=== PATIENT | female | born 1960 | race Caucasian/White ===

== ENCOUNTER 2020-01-09 00:17 | Emergency (ER) | payer OTHER ==
--- NOTE | 2020-01-09 01:44 | EDM.PDOC ---
ED HPI GENERAL MEDICAL PROBLEM - General Chief Complaint: Lower Extremity Injury/Pain Stated Complaint: RT KNEE SWOLLEN Time Seen by Provider: 01/09/20 00:52 Source of Information: Reports: Patient History Limitations: Reports: No Limitations - History of Present Illness INITIAL COMMENTS - FREE TEXT/NARRATIVE: History of present illness: [Patient is 59-year-old female with a history of right hip replacement done about 4 days ago at another facility. She presents with swelling of the right lower extremity. She is taking Xarelto as a precautionary measure since having the right hip surgery. She has a history of previous pulmonary embolism for which she was on Xarelto for 6 months but then was able to stop it. She denies any chest pain or shortness of breath. She denies any severe worsening pain or warmth over the incision site. No purulent drainage. Denies fever.] Review of systems: As per history of present illness and below otherwise all systems reviewed and negative. Past medical history: As per history of present illness and as reviewed below otherwise noncontributory. Surgical history: As per history of present illness and as reviewed below otherwise noncontributory. Social history: No reported history of drug or alcohol abuse. Family history: As per history of present illness and as reviewed below otherwise noncontributory. Physical exam: General: Awake, alert, no acute distress, A&O X3. HEENT: Atraumatic, normocephalic, pupils reactive, negative for conjunctival pallor or scleral icterus, mucous membranes moist, throat clear, neck supple, nontender, trachea midline. Lungs: Clear to auscultation, breath sounds equal bilaterally, chest nontender. Heart: RRR, normal S1S2, no JVD. Abdomen: Soft, nondistended, nontender. Negative for masses or hepatosplenomegaly. Negative for costovertebral tenderness. Pelvis: Stable nontender. Genitourinary: Deferred. Rectal: Deferred. Extremities: Surgical site of the right lateral hip appears to be intact, no evidence for cellulitis, some mild bruising in the area. Diameter of the right lower extremity is mildly larger than compared to the left. No palpable cords. No significant varicose veins. Right leg is neurovascularly intact. Neuro: Motor and sensory grossly intact throughout. Exam nonfocal. Diagnostics: [] Therapeutics: [] Impression: [] Plan: [] Definitive disposition and diagnosis as appropriate pending reevaluation and review of above. left hip Pain Score (Numeric/FACES): 6 - Related Data Allergies Allergy/AdvReac Type Severity Reaction Status Date / Time No Known Allergies Allergy Verified 01/09/20 00:48 Home Meds: Home Meds Fluticasone/Salmeterol [Advair 250-50] 1 puff INH BID 11/15/13 [History] Levothyroxine [Synthroid] 112 mcg PO ACBRK 11/15/13 [History] Montelukast [Singulair] 5 mg PO BEDTIME 11/15/13 [History] Tiotropium [Spiriva HandiHaler] 18 mcg INH BRK 11/15/13 [History] estradioL [Estradiol] 1 mg PO DAILY 12/01/13 [History] Albuterol [Ventolin HFA] 2 puff INH Q8H 12/03/13 [History] Aspirin [Halfprin] 81 mg PO DAILY 06/09/19 [History] Mirabegron [Myrbetriq] 50 mg PO DAILY 06/09/19 [History] Rivaroxaban [Xarelto] 10 mg PO DAILY 06/09/19 [History] atorvaSTATin Calcium [Atorvastatin Calcium] 40 mg PO DAILY 06/09/19 [History] Past Medical History Cardiovascular History: Reports: High Cholesterol Respiratory History: Reports: Asthma, Bronchitis, Recurrent, COPD, 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 Musculoskeletal History: SCIATICA Endocrine/Metabolic History: Reports: Hypothyroidism - Infectious Disease History Infectious Disease History: Reports: Chicken Pox - Past Surgical History HEENT Surgical History: Reports: Tonsillectomy GI Surgical History: Reports: Other (See Below) Neurological Surgical History: Reports: Lumbar Spine, Spinal Fusion Other Neurological Surgeries/Procedures: hip replacement 2020 Musculoskeletal Surgical History: Reports: Other (See Below) Social & Family History - Family History Cardiac: Reports: CAD, Stent - Tobacco Use Smoking Status *Q: Former Smoker Used Tobacco, but Quit: Yes Month/Year Tobacco Last Used: 2015 - Caffeine Use Caffeine Use: Reports: Coffee, Tea Review of Systems - Review of Systems Review Of Systems: Comprehensive ROS is negative, except as noted in HPI. ED EXAM, GENERAL - Physical Exam Exam: See Below (see h and p) Course - Vital Signs Text/Narrative:: Ultrasound negative for DVT. Surgical site looks clean. Vital signs stable. Patient is in no distress. Encouraged her to follow-up as previously instructed with orthopedic surgery and follow previous instructions regarding physical therapy and recovery for the hip. She will continue to take the Xarelto at home as previously prescribed. Return precautions provided otherwise she is well-appearing and stable at discharge. Last Recorded V/S: Last Vital Signs Temp 36.3 C 01/09/20 00:45 Pulse 76 01/09/20 00:45 Resp 16 01/09/20 00:45 BP 93/74 01/09/20 00:45 Pulse Ox 96 01/09/20 00:45 Departure - Departure Time of Disposition: 02:05 Disposition: Home, Self-Care 01 Condition: Good Clinical Impression: Right leg swelling - Discharge Information Instructions: Hip Pain Referrals: Lalo Medina MD [Primary Care Provider] - Forms: ED Department Discharge Additional Instructions: Follow-up with orthopedic surgeon and PCP. Take all medications as previously prescribed. Return to the ED with any new or worsening symptoms. The following information is given to patients seen in the emergency department who are being discharged to home. This information is to outline your options for follow-up care. We provide all patients seen in our emergency department with a follow-up referral. The need for follow-up, as well as the timing and circumstances, are variable depending upon the specifics of your emergency department visit. If you don't have a primary care physician on staff, we will provide you with a referral. We always advise you to contact your personal physician following an emergency department visit to inform them of the circumstance of the visit and for follow-up with them and/or the need for any referrals to a consulting specialist. The emergency department will also refer you to a specialist when appropriate. This referral assures that you have the opportunity for follow-up care with a specialist. All of these measure are taken in an effort to provide you with optimal care, which includes your follow-up. Under all circumstances we always encourage you to contact your private physician who remains a resource for coordinating your care. When calling for follow-up care, please make the office aware that this follow-up is from your recent emergency room visit. If for any reason you are refused follow-up, please contact the [facility] Emergency Department at and asked to speak to the emergency department charge nurse. Sepsis Event Note (ED) - Evaluation Sepsis Screening Result: No Definite Risk - Focused Exam Vital Signs: Vital Signs Temp Pulse Resp BP Pulse Ox 01/09/20 00:45 36.3 C 76 16 93/74 96
--- NOTE | 2020-01-09 02:00 | US ---
INDICATION: Right thigh swelling. Recent right hip prosthesis placement. COMPARISON: None available. FINDINGS: Ultrasound of the venous drainage of the right lower extremity shows no evidence of deep venous thrombosis. There is normal antegrade flow from the posterior tibial and peroneal veins superiorly through the common femoral vein. There is normal augmentation and compressibility of these veins. The left common femoral vein is widely patent. IMPRESSION: No evidence of deep venous thrombosis on ultrasound examination of the right lower extremity. Dictated by Homero Peterson MD @ Jan 09 2020 1:57AM Signed by Dr. Homero Peterson @ Jan 09 2020 1:58AM
[2020-01-09 05:08] VITALS: BP 107/40; PULSE 71
== END 2020-01-09 02:18 | disposition home or self-care (01) ==
LOC: MW.ED 00:17
DX: R22.41 Localized swelling, mass and lump, right lower limb (principal); E78.00 Pure hypercholesterolemia, unspecified; J44.9 Chronic obstructive pulmonary disease, unspecified; E03.9 Hypothyroidism, unspecified; Z87.891 Personal history of nicotine dependence; Z79.82 Long term (current) use of aspirin; Z79.01 Long term (current) use of anticoagulants; Z79.899 Other long term (current) drug therapy
CPT/HCPCS: 93971-26-RT; 93971-RT; 99282; 99283-25

== ENCOUNTER 2020-09-06 10:29 | Inpatient (IN) | payer OTHER ==
[2020-09-06] MEDS ORDERED: Sodium Chloride 0.9% 2.5 ML Syringe FLUSH PRN ×2 (10:45→14:13)
[2020-09-06] MEDS ORDERED: Sodium Chloride 0.9% 10 ML Syringe FLUSH PRN (10:45)
[2020-09-06] MEDS ORDERED: methylPREDNISolone Sodium Succinate 125 MG/2 ML SDV IVPUSH ONE (10:46)
--- NOTE | 2020-09-06 10:51 | EDM.PDOC ---
ED HPI GENERAL MEDICAL PROBLEM - General Chief Complaint: Headache Stated Complaint: POSSIBLE COVID Time Seen by Provider: 09/06/20 10:31 Source of Information: Reports: Patient History Limitations: Reports: No Limitations - History of Present Illness INITIAL COMMENTS - FREE TEXT/NARRATIVE: HISTORY AND PHYSICAL: History of present illness: Patient is a 60-year-old female who presents emergency room today with concern of possible COVID-19 infection. Patient states that she has a history of COPD and has had worsening cough, bilateral sinus pain which is causing a headache, b va aches, and fever over the past several days. Patient states that she was trying to be seen by her primary care provider and when she called them today, they stated that they were concerned about COVID-19 so sent her to the emergency room for further evaluation. Patient states that she used to use oxygen at home intermittently for her COPD but has not needed it in a year so no longer has oxygen available to her. Patient states she also has a history of hypothyroidism and hyperlipidemia but denies any other health history. Patient denies fever, chills, chest pain, shortness of breath. Denies neck stiff ness, change in vision, syncope, or near syncope. Denies nausea, vomiting, abdominal pain, diarrhea, constipation, or dysuria. Has not noted any blood in urine or stool. Patient has been eating and drinking appropriately. Review of systems: As per history of present illness and below otherwise all systems reviewed and negative. Past medical history: As per history of present illness and as reviewed below otherwise noncontributory. Surgical history: As per history of present illness and as reviewed below otherwise noncontributory. Social history: See social history for further information Family history: As per history of present illness and as reviewed below otherwise noncontributory. Physical exam: General: Patient is alert, oriented, and in no acute distress. Patient sitting comfortably on exam table. Hypoxic 85% on RA, otherwise vitally stable. 2L NC placed and 95% HEENT: Atraumatic, normocephalic, pupils equal and reactive bilaterally, negative for conjunctival pallor or scleral icterus, mucous membranes moist, TMs normal bilaterally, throat clear, neck supple, nontender, trachea midline. No drooling or trismus noted. No meningeal signs. No hot potato voice noted. Lungs: Wet cough on exam. Otherwise, Patient speaking clearly without breathlessness, no wheezing or stridor, no accessory muscle use or respiratory distress. Auscultation deferred due to current COV-ID 19 outbreak. Heart: Auscultation deferred due to current COV-ID 19 outbreak. Abdomen: Soft, nondistended, nontender. Negative for masses or hepatosplenomegaly. Negative for costovertebral tenderness. Pelvis: Stable nontender. Genitourinary: Deferred. Rectal: Deferred. Skin: Intact, warm, dry. No lesions or rashes noted. Extremities: Atraumatic, negative for cords or calf pain. Neurovascular unremarkable. Neuro: Awake, alert, oriented. Cranial nerves II through XII unremarkable. Cerebellum unremarkable. Motor and sensory unremarkable throughout. Exam nonfocal. Notes: Patient O2 on arrival 85% but breathing comfortably, no wheezing, no stridor, no accessory muscle use or respiratory distress. 2L NC placed and O2 now 95% On reevaluation of patient today in the ED, she remains vitally stable, non toxic, no respiratory distress and states that she does feel better after therapeutics given today in the emergency room. She is still on 2 L nasal cannula and satting between 90 to 95%. I did call and speak to the hospitalist on-call, Dr. Harmon, and thoroughly discussed patient's case. Will admit to observation on telemetry. Voices understanding and is agreeable to plan of care. Denies any further questions or concerns at this time. Diagnostics: EKG, CBC, CMP, UA, CXR, ddimer, trop, COVID/Flu Therapeutics: Solumedrol, Azithromycin, Toradol Impression: COVID 19 viral infection Hypoxia COPD exacerbation Plan: Admit to observation to Dr. Harmon on telemetry Definitive disposition and diagnosis as appropriate pending reevaluation and review of above. Face/Facial Pain Score (Numeric/FACES): 8 Left Temporal Headache Pain Score (Numeric/FACES): 7 - Related Data Allergies Allergy/AdvReac Type Severity Reaction Status Date / Time No Known Allergies Allergy Verified 09/06/20 16:11 Home Meds: Home Meds Levothyroxine [Synthroid] 100 mcg PO ACBRK 11/15/13 [History] Montelukast [Singulair] 10 mg PO DAILY 11/15/13 [History] Tiotropium [Spiriva HandiHaler] 18 mcg INH DAILY 11/15/13 [History] estradioL [Estradiol] 1 mg PO DAILY 12/01/13 [History] Albuterol [Ventolin HFA] 2 puff INH QID PRN 12/03/13 [History] Aspirin [Halfprin] 81 mg PO DAILY 06/09/19 [History] atorvaSTATin Calcium [Atorvastatin Calcium] 40 mg PO DAILY 06/09/19 [History] Albuterol/Ipratropium [DuoNeb 3.0-0.5 MG/3 ML] 1 inhalation IH QID 09/06/20 [History] Alendronate Sodium 35 mg PO WEEKLY 09/06/20 [History] Ascorbic Acid [Vitamin C] 1 cap PO DAILY 09/06/20 [History] Baclofen 1 tab PO TID PRN 09/06/20 [History] Budesonide/Formoterol Fumarate [Budesonide-Formoterol 160-4.5] 2 inh IH BID 09/06/20 [History] Celecoxib [CeleBREX] 1 cap PO BID 09/06/20 [History] Cholecalciferol (Vitamin D3) [Vitamin D3] 1 tab PO DAILY 09/06/20 [History] Fluticasone Propionate [Flonase] 2 spray NASBOTH BID 09/06/20 [History] Gabapentin [Neurontin] 400 mg PO BID 09/06/20 [History] Mirabegron [Myrbetriq] 50 mg PO DAILY 09/06/20 [History] Multivitamin 1 tab PO DAILY 09/06/20 [History] Mupirocin Oint [Bactroban Oint] 1 applic TOP TID PRN 09/06/20 [History] Vitamin E 1 tab PO DAILY 09/06/20 [History] Zinc 1 tab PO DAILY 09/06/20 [History] cephALEXin [Cephalexin] 1 tab PO DAILY 09/06/20 [History] traMADol [Ultram] 50 mg PO DAILY PRN 09/06/20 [History] Past Medical History Cardiovascular History: Reports: High Cholesterol Respiratory 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 ED EXAM, GENERAL - Physical Exam Exam: See Below (see dictation) Course - Vital Signs Last Recorded V/S: Last Vital Signs Temp 99.6 F 09/06/20 10:42 Pulse 86 09/06/20 15:30 Resp 18 09/06/20 15:30 BP 109/70 09/06/20 15:30 Pulse Ox 94 L 09/06/20 17:44 - Orders/Labs/Meds Orders: Active Orders 24 hr Category Date Time Status UA RFX DIANNA AND CULT IF INDIC [URIN] Stat Lab 09/06/20 10:53 Ordered Medication Orders Acetaminophen (Tylenol) 650 mg PO Q4H PRN PRN Reason: Pain (Mild 1-3)/fever Last Admin: 09/06/20 16:51 Dose: 650 mg Documented by: XIMENA Albuterol/Ipratropium (Duoneb 3.0-0.5 Mg/3 Ml) 3 ml NEB Q4HRRT JOSETTE Last Admin: 09/06/20 17:20 Dose: 3 ml Documented by: KANDACE Aspirin (Halfprin) 81 mg PO DAILY JOSETTE Atorvastatin Calcium (Lipitor) 40 mg PO BEDTIME JOSETTE Azithromycin (Zithromax) 500 mg PO Q24H JOSETTE Baclofen (Lioresal) 10 mg PO TID PRN PRN Reason: Pain Celecoxib (Celebrex) 100 mg PO BID JOSETTE Cholecalciferol (Vitamin D3) 10 mcg PO DAILY JOSETTE Dexamethasone (Dexamethasone) 6 mg PO DAILY JOSETTE Enoxaparin Sodium (Lovenox) 40 mg SUBCUT Q24H [facility] Last Admin: 09/06/20 16:15 Dose: 40 mg Documented by: XIMENA Fluticasone Propionate (Flonase) 0 gm NASBOTH BID JOSETTE Folic Acid (Folic Acid) 1 mg PO BEDTIME JOSETTE Gabapentin (Neurontin) 300 mg PO BID JOSETTE Gabapentin (Neurontin) 100 mg PO BID JOSETTE Remdesivir 100 mg/ Sodium (Chloride) 100 mls @ 100 mls/hr IV Q24H JOSETTE Stop: 09/10/20 15:59 Levothyroxine Sodium (Synthroid) 100 mcg PO ACBRK JOSETTE Lorazepam (Ativan) 0 mg IVPUSH Q4H PRN; Protocol PRN Reason: CIWAA Montelukast Sodium (Singulair) 10 mg PO BEDTIME [facility] Multivitamins/Minerals/Vitamin C (Tab-A-Norm) 1 tab PO DAILY JOSETTE Ondansetron HCl (Zofran) 4 mg IVPUSH Q4H PRN PRN Reason: Nausea Pantoprazole Sodium (Protonix) 40 mg PO ACBREAKFAST JOSETTE Budesonide/Formoterol 160-4.5 Mcg/Puff 6 Gm Inhaler 2 each INH BIDRT JOSETTE Mirabegron 50 Mg 1 each PO DAILY JOSETTE Sodium Chloride (Saline Flush) 2.5 ml FLUSH ASDIRECTED PRN PRN Reason: Keep Vein Open Thiamine HCl (Vitamin B-1) 100 mg PO BEDTIME JOSETTE Tiotropium Simpson (Spiriva Handihaler) 18 mcg INH DAILYRT JOSETTE Tramadol HCl (Ultram) 50 mg PO Q24H PRN PRN Reason: Pain Labs: Laboratory Tests 09/06/20 09/06/20 09/06/20 Range/Units 10:48 11:05 11:05 WBC 5.04 (4.0-11.0) K/uL RBC 4.15 L (4.30-5.90) M/uL Hgb 12.7 (12.0-16.0) g/dL Hct 39.1 (36.0-46.0) % MCV 94.2 (80.0-98.0) fL MCH 30.6 (27.0-32.0) pg MCHC 32.5 (31.0-37.0) g/dL RDW Std Deviation 48.4 (28.0-62.0) fl RDW Coeff of Glo 14 (11.0-15.0) % Plt Count 204 (150-400) K/uL MPV 10.00 (7.40-12.00) fL Neut % (Auto) 84.9 H (48.0-80.0) % Lymph % (Auto) 10.7 L (16.0-40.0) % Spencer % (Auto) 4.0 (0.0-15.0) % Eos % (Auto) 0.4 (0.0-7.0) % Baso % (Auto) 0.0 (0.0-1.5) % Neut # (Auto) 4.3 (1.4-5.7) K/uL Lymph # (Auto) 0.5 L (0.6-2.4) K/uL Spencer # (Auto) 0.2 (0.0-0.8) K/uL Eos # (Auto) 0.0 (0.0-0.7) K/uL Baso # (Auto) 0.0 (0.0-0.1) K/uL Nucleated RBC % 0.0 /100WBC Nucleated RBCs # 0 K/uL D-Dimer, Quantitative (0.0-0.50) mg/L FEU Sodium 137 (136-145) mmol/L Potassium 4.0 (3.5-5.1) mmol/L Chloride 102 (98-107) mmol/L Carbon Dioxide 27.6 (21.0-32.0) mmol/L BUN 8 (7.0-18.0) mg/dL Creatinine 0.9 (0.6-1.0) mg/dL Est Cr Clr Drug Dosing 57.40 mL/min Estimated GFR (MDRD) > 60.0 ml/min Glucose 111 H (74-106) mg/dL Calcium 8.4 L (8.5-10.1) mg/dL Total Bilirubin 0.3 (0.2-1.0) mg/dL AST 20 (15-37) IU/L ALT 16 (14-63) IU/L Alkaline Phosphatase 62 (46-116) U/L Troponin I < 0.050 (0.000-0.056) ng/mL Total Protein 7.2 (6.4-8.2) g/dL Albumin 2.8 L (3.4-5.0) g/dL Globulin 4.4 H (2.6-4.0) g/dL Albumin/Globulin Ratio 0.6 L (0.9-1.6) Influenza Type A RNA NEGATIVE (NEGATIVE) Influenza Type B RNA NEGATIVE (NEGATIVE) SARS-CoV-2 RNA (LAURI) POSITIVE H (NEGATIVE) 09/06/20 Range/Units 11:05 WBC (4.0-11.0) K/uL RBC (4.30-5.90) M/uL Hgb (12.0-16.0) g/dL Hct (36.0-46.0) % MCV (80.0-98.0) fL MCH (27.0-32.0) pg MCHC (31.0-37.0) g/dL RDW Std Deviation (28.0-62.0) fl RDW Coeff of Glo (11.0-15.0) % Plt Count (150-400) K/uL MPV (7.40-12.00) fL Neut % (Auto) (48.0-80.0) % Lymph % (Auto) (16.0-40.0) % Spencer % (Auto) (0.0-15.0) % Eos % (Auto) (0.0-7.0) % Baso % (Auto) (0.0-1.5) % Neut # (Auto) (1.4-5.7) K/uL Lymph # (Auto) (0.6-2.4) K/uL Spencer # (Auto) (0.0-0.8) K/uL Eos # (Auto) (0.0-0.7) K/uL Baso # (Auto) (0.0-0.1) K/uL Nucleated RBC % /100WBC Nucleated RBCs # K/uL D-Dimer, Quantitative 0.83 H (0.0-0.50) mg/L FEU Sodium (136-145) mmol/L Potassium (3.5-5.1) mmol/L Chloride (98-107) mmol/L Carbon Dioxide (21.0-32.0) mmol/L BUN (7.0-18.0) mg/dL Creatinine (0.6-1.0) mg/dL Est Cr Clr Drug Dosing mL/min Estimated GFR (MDRD) ml/min Glucose (74-106) mg/dL Calcium (8.5-10.1) mg/dL Total Bilirubin (0.2-1.0) mg/dL AST (15-37) IU/L ALT (14-63) IU/L Alkaline Phosphatase (46-116) U/L Troponin I (0.000-0.056) ng/mL Total Protein (6.4-8.2) g/dL Albumin (3.4-5.0) g/dL Globulin (2.6-4.0) g/dL Albumin/Globulin Ratio (0.9-1.6) Influenza Type A RNA (NEGATIVE) Influenza Type B RNA (NEGATIVE) SARS-CoV-2 RNA (LAURI) (NEGATIVE) Meds: Medications Generic Name Dose Route Start Last Admin Trade Name Freq PRN Reason Stop Dose Admin Acetaminophen 650 mg 09/06/20 14:13 09/06/20 16:51 Tylenol PO 650 mg Q4H PRN Administration Pain (Mild 1-3)/fever Albuterol/Ipratropium 3 ml 09/06/20 18:00 09/06/20 17:20 Duoneb 3.0-0.5 Mg/3 Ml NEB 3 ml Q4HRRT JOSETTE Administration Aspirin 81 mg 09/07/20 09:00 Halfprin PO DAILY [facility] Atorvastatin Calcium 40 mg 09/07/20 21:00 Lipitor PO BEDTIME JOSETTE Azithromycin 500 mg 09/07/20 14:30 Zithromax PO Q24H JOSETTE Baclofen 10 mg 09/06/20 16:17 Lioresal PO TID PRN Pain Celecoxib 100 mg 09/06/20 21:00 Celebrex PO BID [facility] Cholecalciferol 10 mcg 09/07/20 09:00 Vitamin D3 PO DAILY [facility] Dexamethasone 6 mg 09/07/20 09:00 Dexamethasone PO DAILY [facility] Enoxaparin Sodium 40 mg 09/06/20 15:00 09/06/20 16:15 Lovenox SUBCUT 40 mg Q24H JOSETTE Administration Fluticasone Propionate 0 gm 09/06/20 21:00 Flonase NASBOTH BID [facility] Folic Acid 1 mg 09/06/20 21:00 Folic Acid PO BEDTIME [facility] Gabapentin 300 mg 09/06/20 21:00 Neurontin PO BID JOSETTE Gabapentin 100 mg 09/06/20 21:00 Neurontin PO BID [facility] Remdesivir 100 mg/ Sodium 100 mls @ 100 mls/hr 09/07/20 15:00 Chloride IV 09/10/20 15:59 Q24H [facility] Levothyroxine Sodium 100 mcg 09/07/20 07:30 Synthroid PO ACBRK JOSETTE Lorazepam 0 mg 09/06/20 15:02 Ativan IVPUSH Q4H PRN CIWAA Protocol Montelukast Sodium 10 mg 09/06/20 21:00 Singulair PO BEDTIME [facility] Multivitamins/Minerals/Vitamin C 1 tab 09/07/20 09:00 Tab-A-Norm PO DAILY JOSETTE Ondansetron HCl 4 mg 09/06/20 14:13 Zofran IVPUSH Q4H PRN Nausea Pantoprazole Sodium 40 mg 09/07/20 07:30 Protonix PO ACBREAKFAST JOSETTE Budesonide/ 2 each 09/06/20 21:00 Formoterol 160-4.5 INH Mcg/Puff 6 Gm BIDRT JOSETTE Inhaler Mirabegron 50 Mg 1 each 09/07/20 09:00 PO DAILY JOSETTE Sodium Chloride 2.5 ml 09/06/20 14:13 Saline Flush FLUSH ASDIRECTED PRN Keep Vein Open Thiamine HCl 100 mg 09/06/20 21:00 Vitamin B-1 PO BEDTIME JOSETTE Tiotropium Simpson 18 mcg 09/07/20 06:00 Spiriva Handihaler INH DAILYRT JOSETTE Tramadol HCl 50 mg 09/06/20 16:17 Ultram PO Q24H PRN Pain Discontinued Medications Generic Name Dose Route Start Last Admin Trade Name Freq PRN Reason Stop Dose Admin Fluticasone Propionate 0 gm 09/06/20 15:00 09/06/20 16:13 Flonase NASBOTH 2 inhalation DAILY JOSETTE Administration Azithromycin 500 mg/ Sodium 250 mls @ 250 mls/hr 09/06/20 13:45 09/06/20 13:56 Chloride IV 09/06/20 16:00 250 mls/hr ONETIME JOSETTE Administration Remdesivir 200 mg/ Sodium 250 mls @ 250 mls/hr 09/06/20 15:00 09/06/20 16:20 Chloride IV 09/06/20 15:59 250 mls/hr ONETIME ONE Administration Iopamidol 80 ml 09/06/20 12:50 09/06/20 12:55 Isovue Multipack-370 (76%) IVPUSH 09/06/20 12:51 80 ml ONETIME STA Administration Ketorolac Tromethamine 30 mg 09/06/20 11:08 09/06/20 11:14 Toradol IVPUSH 09/06/20 11:09 30 mg ONETIME ONE Administration Methylprednisolone Sodium Succinate 125 mg 09/06/20 10:46 09/06/20 11:14 Solu-Medrol IVPUSH 09/06/20 10:47 125 mg ONETIME ONE Administration Sodium Chloride 10 ml 09/06/20 10:45 09/06/20 11:14 Saline Flush FLUSH 10 ml ASDIRECTED PRN Administration Keep Vein Open Sodium Chloride 2.5 ml 09/06/20 10:45 09/06/20 11:15 Saline Flush FLUSH 2.5 ml ASDIRECTED PRN Administration Keep Vein Open Departure - Departure Time of Disposition: 13:47 Disposition: Refer to Observation Clinical Impression: COVID-19 virus infection, Hypoxia COPD (chronic obstructive pulmonary disease) Qualifiers: COPD type: unspecified COPD Qualified Code(s): J44.9 - Chronic obstructive pulmonary disease, unspecified - Discharge Information Sepsis Event Note (ED) - Evaluation Sepsis Screening Result: Possible Sepsis Risk - Focused Exam Vital Signs: Vital Signs Temp Pulse Resp BP Pulse Ox 09/06/20 13:23 86 16 97/47 L 94 L 09/06/20 12:30 80 16 93 L 09/06/20 11:17 90 16 108/56 L 93 L 09/06/20 10:46 95 09/06/20 10:42 99.6 F 100 20 127/49 L 84 L - My Orders Last 24 Hours: My Active Orders 09/06/20 10:53 UA RFX DIANNA AND CULT IF INDIC [URIN] Stat - Assessment/Plan Last 24 Hours: My Active Orders 09/06/20 10:53 UA RFX DIANNA AND CULT IF INDIC [URIN] Stat
--- NOTE | 2020-09-06 11:01 | PCM.EKG ---
#1 Interpretation EKG Date: 09/06/20 Time: 11:01 EKG Interpretation Comments: Normal sinus rhythm rate of 90 some baseline wander but no ST depressions or elevations no acute ischemia normal intervals
[2020-09-06] MEDS ORDERED: Ketorolac 30 MG/ML SDV IVPUSH ONE (11:08)
[2020-09-06 11:34] LABS: CORONAVIRUS COVID-19 NAA POSITIVE (NEGATIVE); INFLUENZA A NAA NEGATIVE (NEGATIVE); INFLUENZA B NAA NEGATIVE (NEGATIVE)
[2020-09-06 11:37] LABS: BLOOD UREA NITROGEN,BUN 8 mg/dL (7.0-18.0); CARBON DIOXIDE,CO2 27.6 mmol/L (21.0-32.0); CHLORIDE,CL 102 mmol/L (98-107); GLUCOSE RANDOM 111 mg/dL (74-106); SODIUM,NA 137 mmol/L (136-145)
--- NOTE | 2020-09-06 11:51 | CR ---
INDICATION: Hypoxia and fever COMPARISON: November 17, 2015 TECHNIQUE: Two views of the chest were acquired FINDINGS: TUBES AND LINES: None. HEART AND MEDIASTINUM: The heart size is normal. The mediastinal contour appears normal for patient age.Atherosclerotic changes aorta LUNGS AND PLEURAL SPACES: Airspace opacities of both bases could represent atelectasis, aspiration or pneumonia. Minimal blunting left costophrenic angle probably a small left effusion.The lung and pleural findings are new. OSSEOUS STRUCTURES: Age-appropriate appearance. No acute focal finding. IMPRESSION: Mild bibasilar parenchymal opacities could represent atelectasis, aspiration or pneumonia. Probable small left effusion. Dictated by Eduardo Medina MD @ Sep 06 2020 11:47AM Signed by Dr. Eduardo Medina @ Sep 06 2020 11:49AM
[2020-09-06] MEDS ORDERED: Iopamidol 755 MG/ML 500 ML Multipack Bottle IVPUSH STA (12:50)
--- NOTE | 2020-09-06 13:26 | CT ---
INDICATION: Elevated D-dimer. COVID-19 positive. COMPARISON: Chest radiograph from today. TECHNIQUE: CT examination of the chest was performed with the uneventful intravenous administration of 80 cc of Isovue 370 while 1 and 1.5 mm thick axial sections were obtained through the pulmonary arteries. Please note that all CT scans at this facility use dose modulation, iterative reconstruction, and/or weight-based dosing when appropriate to reduce radiation dose to as low as reasonably achievable. FINDINGS: : There is no sign of pulmonary embolism, with normal enhancement and branching of the pulmonary arteries. There is moderate patchy left greater than right basilar crazy paving infiltrates, along with mild bilateral peripheral dependence ground-glass and crazy paving infiltrates scattered throughout the rest of the chest, findings typical of COVID-19 pneumonia. No pleural effusions are evident. There is no sign of mediastinal or hilar mass or adenopathy. There is mild prominence of a right inferior hilar lymph node, probably reactive. The heart is normal in appearance for the patient`s age, as are the aorta and other ascending great vessels. There is no sign of supraclavicular or axillary mass or adenopathy. The visualized superior liver has a low density 9 millimeter subcapsular nodule in the anterior aspect of the superior medial segment of the left lobe, segment 4a. this does not appear to be low-density enough to be a cyst and it may be a small hemangioma or focal fatty infiltration. The rest of the visualized superior liver is normal in appearance. The visualized superior spleen, pancreas, kidneys, and adrenals are normal in appearance. The osseous structures are normal in appearance for the patient`s age. IMPRESSION: No sign of pulmonary embolism. Peripheral increasing paving in ground-glass pulmonary infiltrates, with moderate involvement of the posterior lung bases left greater than right, and milder involvement elsewhere. Findings typical of COVID-19 pneumonia. 0.9 centimeter nonspecific low-density region in anterior subcapsular segment 4A of the liver, probably a small hemangioma versus focal fatty infiltration. Please note that all CT scans at this facility use dose modulation, iterative reconstruction, and/or weight-based dosing when appropriate to reduce radiation dose to as low as reasonably achievable. Dictated by Homero Peterson MD @ Sep 06 2020 1:17PM Signed by Dr. Homero Peterson @ Sep 06 2020 1:25PM
[2020-09-06] MEDS ORDERED: Azithromycin 500 MG in Sodium Chloride 0.9% 250 ML IV SCH (13:45)
[2020-09-06] MEDS ORDERED: Ondansetron 4 MG/2 ML SDV IVPUSH PRN (14:13)
--- NOTE | 2020-09-06 14:50 | PCM.HP.2 ---
H&P History of Present Illness - General Date of Service: 09/06/20 Admit Problem/Dx: Admission Diagnosis/Problem Admission Diagnosis/Problem Hypoxia Source of Information: Patient History Limitations: Reports: No Limitations - History of Present Illness Initial Comments - Free Text/Narative: This 60-year-old female with past medical history of COPD, chronic low back pain, hypothyroidism, overactive bladder, chronic pain, HLD, depression and history of PE presented to the ER today with complaints of not feeling well for over 1 week. She reports last week she started feeling headache body aches fevers and chills and her taste was off. She reports that over the last few days shortness of breath has worsened significantly and she has noted her saturations at home were 60s on room air. She reports they did come up slightly to 70s and then mid 80s she did borrow her sister's oxygen tank to help with this. She denies any chest pain but does report some burning with coughing along with shortness of breath. She denies any palpitations. No neck pain. Reports allover headache denies blurred vision or double vision. Denies any neck pain or nuchal rigidity. She does report significant sinus congestion mainly in the maxillary sinuses. Denies any sore throat. She reports mild abdominal discomfort no nausea or vomiting and again poor appetite. Denies any diarrhea black or bloody bowel movements. She reports she has been more constipated which is normal for her. She denies any tobacco use currently. She quit approximately 3 years ago. Reports she does drink 3-4 alcoholic beverages daily. No recreational drug use. She reports she has no known contact for Covid infection. She does report she got the influenza vaccine this year. But has not yet gotten code vaccination. In the ER no leukocytosis noted. Platelets 204,000. D-dimer elevated at 0.83. BMP and LFTs within normal limits. Troponin negative. EKG normal sinus rhythm with no ST depression or elevation. Chest x-ray revealed mild bibasilar opacities with small left pleural effusion. CTA of the chest was obtained secondary to elevated D-dimer. This revealed no PE but did show continued bibasilar opacities left slightly greater than right indicative of COVID-19. She did have cepheid swab which was negative for influenza a and B but positive for Covid. On arrival to the ER she was noted to be hypoxic with sats 85% on room air. She was placed on 2 L and sats improved to 95%. She was also given a azithromycin as well as Solu-Medrol and duo nebs in the ER. Face/Facial Pain Score (Numeric/FACES): 8 - Related Data Allergies/Adverse Reactions: Allergies Allergy/AdvReac Type Severity Reaction Status Date / Time No Known Allergies Allergy Verified 09/06/20 10:41 Home Medications: Home Meds Levothyroxine [Synthroid] 100 mcg PO ACBRK 11/15/13 [History] Montelukast [Singulair] 10 mg PO BEDTIME 11/15/13 [History] Tiotropium [Spiriva HandiHaler] 18 mcg INH BRK 11/15/13 [History] estradioL [Estradiol] 1 mg PO DAILY 12/01/13 [History] Albuterol [Ventolin HFA] 2 puff INH Q8H 12/03/13 [History] Aspirin [Halfprin] 81 mg PO DAILY 06/09/19 [History] atorvaSTATin Calcium [Atorvastatin Calcium] 40 mg PO DAILY 06/09/19 [History] Alendronate Sodium 35 mg PO WEEKLY 09/06/20 [History] Budesonide/Formoterol Fumarate [Budesonide-Formoterol 160-4.5] 2 inh IH BID 09/06/20 [History] Gabapentin [Neurontin] 400 mg PO BID 09/06/20 [History] Mirabegron [Myrbetriq] 50 mg PO DAILY 09/06/20 [History] Past Medical History Cardiovascular History: Reports: Blood Clots/VTE/DVT (History PE), High Cholesterol. Denies: Afib, CAD, [place], Stents Respiratory History: Reports: Asthma, Bronchitis, Recurrent, COPD, PE, SOB Gastrointestinal History: Reports: None. Denies: [employer] History: Reports: Musculoskeletal History: Reports: Osteoarthritis (Avascular necrosis bilateral hips status post right ARIEL needing left ARIEL) Other Musculoskeletal History: SCIATICA Neurological History: Reports: None. Denies: CVA, TIA Psychiatric History: Reports: None Endocrine/Metabolic History: Reports: Hypothyroidism. Denies: Diabetes, Type II, Obesity/BMI 30+ - Infectious Disease History Infectious Disease History: Reports: Chicken Pox - Past Surgical History HEENT Surgical History: Reports: Tonsillectomy GI Surgical History: Reports: Other (See Below) Other GI Surgeries/Procedures: 'TUMMY TUCK" Neurological Surgical History: Reports: Lumbar Spine, Spinal Fusion Other Neurological Surgeries/Procedures: hip replacement 2019 Musculoskeletal Surgical History: Reports: Hip Replacement (Right hip December 2019), Other (See Below) Other Musculoskeletal Surgeries/Procedures:: right ankle Social & Family History - Family History Cardiac: Reports: CAD, Stent - Tobacco Use Tobacco Use Status *Q: Never Tobacco User - Caffeine Use Caffeine Use: Reports: None - Alcohol Use Alcohol Use History: Yes Days Per Week of Alcohol Use: 6 Number of Drinks Per Day: 3 Total Drinks Per Week: 18 Alcohol Use Frequency: Daily - Recreational Drug Use Recreational Drug Use: No H&P Review of Systems - Review of Systems: Review Of Systems: See Below General: Reports: Fever, Chills, Malaise, Weakness, Fatigue HEENT: Reports: Headaches, Sinus Congestion. Denies: Ear Pain, Vertigo, Visual Changes Pulmonary: Reports: Shortness of Breath, Wheezing, Pleuritic Chest Pain, Cough, Sputum (Cream/yellow). Denies: Hemoptysis Cardiovascular: Reports: Dyspnea on Exertion. Denies: Chest Pain, Palpitations, Edema, Lightheadedness Gastrointestinal: Reports: Abdominal Pain (Diffuse tenderness), Constipation, Decreased Appetite. Denies: Black Stool, Bloody Stool, Diarrhea, Nausea, Vomiting Genitourinary: Reports: No Symptoms. Denies: Dysuria, Frequency, Burning Musculoskeletal: Reports: No Symptoms Skin: Reports: No Symptoms Psychiatric: Reports: No Symptoms Neurological: Reports: No Symptoms Hematologic/Lymphatic: Reports: No Symptoms Immunologic: Reports: No Symptoms Exam - Exam Exam: See Below - Vital Signs Vital Signs: Last Vital Signs Temp 99.6 F 09/06/20 10:42 Pulse 84 09/06/20 13:57 Resp 16 09/06/20 13:57 BP 109/56 L 09/06/20 13:57 Pulse Ox 92 L 09/06/20 13:57 Weight: 77.111 kg - Exam Quality Assessment: Supplemental Oxygen (2 L nasal cannula), DVT Prophylaxis (Lovenox and SCDs) General: Alert, Oriented HEENT: Conjunctiva Clear, Mucosa Moist & [place], Posterior Pharynx Clear Neck: Supple, Trachea Midline, Full Range of Motion Lungs: Normal Respiratory Effort, Decreased Breath Sounds, Crackles (Fine bibasilar) Cardiovascular: Regular Rate, Regular Rhythm, Normal S1, Normal S2 GI/Abdominal Exam: Normal Bowel Sounds, Soft, Tender (Diffusely tender no significant tenderness in any 1 spot.) Back Exam: Normal Inspection, Full Range of Motion Extremities: Normal Inspection, Normal Range of Motion, Non-Tender, No Pedal Edema Neurological: Cranial Nerves Intact Neuro Extensive - Mental Status: Alert, Oriented x3 Neuro Extensive - Motor, Sensory, Reflexes: CN II-XII Intact Psychiatric: Alert, Normal Affect, Normal Mood - Patient Data Lab Results Last 24 hrs: Laboratory Results - last 24 hr 09/06/20 09/06/20 09/06/20 Range/Units 10:48 11:05 11:05 WBC 5.04 (4.0-11.0) K/uL RBC 4.15 L (4.30-5.90) M/uL Hgb 12.7 (12.0-16.0) g/dL Hct 39.1 (36.0-46.0) % MCV 94.2 (80.0-98.0) fL MCH 30.6 (27.0-32.0) pg MCHC 32.5 (31.0-37.0) g/dL RDW Std Deviation 48.4 (28.0-62.0) fl RDW Coeff of Glo 14 (11.0-15.0) % Plt Count 204 (150-400) K/uL MPV 10.00 (7.40-12.00) fL Neut % (Auto) 84.9 H (48.0-80.0) % Lymph % (Auto) 10.7 L (16.0-40.0) % [place] % (Auto) 4.0 (0.0-15.0) % Eos % (Auto) 0.4 (0.0-7.0) % Baso % (Auto) 0.0 (0.0-1.5) % Neut # (Auto) 4.3 (1.4-5.7) K/uL Lymph # (Auto) 0.5 L (0.6-2.4) K/uL [place] # (Auto) 0.2 (0.0-0.8) K/uL Eos # (Auto) 0.0 (0.0-0.7) K/uL Baso # (Auto) 0.0 (0.0-0.1) K/uL Nucleated RBC % 0.0 /100WBC Nucleated RBCs # 0 K/uL D-Dimer, Quantitative (0.0-0.50) mg/L FEU Sodium 137 (136-145) mmol/L Potassium 4.0 (3.5-5.1) mmol/L Chloride 102 (98-107) mmol/L Carbon Dioxide 27.6 (21.0-32.0) mmol/L BUN 8 (7.0-18.0) mg/dL Creatinine 0.9 (0.6-1.0) mg/dL Est Cr Clr Drug Dosing 57.40 mL/min Estimated GFR (MDRD) > 60.0 ml/min Glucose 111 H (74-106) mg/dL Calcium 8.4 L (8.5-10.1) mg/dL Total Bilirubin 0.3 (0.2-1.0) mg/dL AST 20 (15-37) IU/L ALT 16 (14-63) IU/L Alkaline Phosphatase 62 (46-116) U/L Troponin I < 0.050 (0.000-0.056) ng/mL Total Protein 7.2 (6.4-8.2) g/dL Albumin 2.8 L (3.4-5.0) g/dL Globulin 4.4 H (2.6-4.0) g/dL Albumin/Globulin Ratio 0.6 L (0.9-1.6) Influenza Type A RNA NEGATIVE (NEGATIVE) Influenza Type B RNA NEGATIVE (NEGATIVE) SARS-CoV-2 RNA (LAURI) POSITIVE H (NEGATIVE) 09/06/20 Range/Units 11:05 WBC (4.0-11.0) K/uL RBC (4.30-5.90) M/uL Hgb (12.0-16.0) g/dL Hct (36.0-46.0) % MCV (80.0-98.0) fL MCH (27.0-32.0) pg MCHC (31.0-37.0) g/dL RDW Std Deviation (28.0-62.0) fl RDW Coeff of Glo (11.0-15.0) % Plt Count (150-400) K/uL MPV (7.40-12.00) fL Neut % (Auto) (48.0-80.0) % Lymph % (Auto) (16.0-40.0) % [place] % (Auto) (0.0-15.0) % Eos % (Auto) (0.0-7.0) % Baso % (Auto) (0.0-1.5) % Neut # (Auto) (1.4-5.7) K/uL Lymph # (Auto) (0.6-2.4) K/uL [place] # (Auto) (0.0-0.8) K/uL Eos # (Auto) (0.0-0.7) K/uL Baso # (Auto) (0.0-0.1) K/uL Nucleated RBC % /100WBC Nucleated RBCs # K/uL D-Dimer, Quantitative 0.83 H (0.0-0.50) mg/L FEU Sodium (136-145) mmol/L Potassium (3.5-5.1) mmol/L Chloride (98-107) mmol/L Carbon Dioxide (21.0-32.0) mmol/L BUN (7.0-18.0) mg/dL Creatinine (0.6-1.0) mg/dL Est Cr Clr Drug Dosing mL/min Estimated GFR (MDRD) ml/min Glucose (74-106) mg/dL Calcium (8.5-10.1) mg/dL Total Bilirubin (0.2-1.0) mg/dL AST (15-37) IU/L ALT (14-63) IU/L Alkaline Phosphatase (46-116) U/L Troponin I (0.000-0.056) ng/mL Total Protein (6.4-8.2) g/dL Albumin (3.4-5.0) g/dL Globulin (2.6-4.0) g/dL Albumin/Globulin Ratio (0.9-1.6) Influenza Type A RNA (NEGATIVE) Influenza Type B RNA (NEGATIVE) SARS-CoV-2 RNA (LAURI) (NEGATIVE) Result Diagrams: 09/06/20 11:05 09/06/20 11:05 Sepsis Event Note - Evaluation Sepsis Screening Result: Possible Sepsis Risk - Focused Exam Vital Signs: Vital Signs Temp Pulse Resp BP Pulse Ox 09/06/20 13:57 84 16 109/56 L 92 L 09/06/20 13:23 86 16 97/47 L 94 L 09/06/20 12:30 80 16 93 L 09/06/20 11:17 90 16 108/56 L 93 L 09/06/20 10:46 95 09/06/20 10:42 99.6 F 100 20 127/49 L 84 L - Problem List (1) Acute and chronic respiratory failure with hypoxia SNOMED Code(s): 06230074, 175513088 ICD Code: J96.21 - ACUTE AND CHRONIC RESPIRATORY FAILURE WITH HYPOXIA Statu s: Acute Current Visit: Yes (2) COVID-19 virus infection SNOMED Code(s): 326220975 ICD Code: U07.1 - COVID-19 Status: Acute Current Visit: Yes (3) HLD (hyperlipidemia) SNOMED Code(s): 58283767 ICD Code: E78.5 - HYPERLIPIDEMIA, UNSPECIFIED Status: Chronic Current Visit: Yes (4) Hypothyroidism SNOMED Code(s): 83325844 ICD Code: E03.9 - HYPOTHYROIDISM, UNSPECIFIED Status: Chronic Current Visit: Yes (5) Overactive bladder SNOMED Code(s): 742845649 ICD Code: N32.81 - OVERACTIVE BLADDER Status: Chronic Current Visit: Yes (6) History of pulmonary embolus (PE) SNOMED Code(s): 956647560 ICD Code: Z86.711 - PERSONAL HISTORY OF PULMONARY EMBOLISM Status: Chronic Current Visit: Yes (7) Chronic pain syndrome SNOMED Code(s): 244212620 ICD Code: G89.4 - CHRONIC PAIN SYNDROME Status: Chronic Current Visit: Yes (8) Depression SNOMED Code(s): 81170474 ICD Code: F32.9 - MAJOR DEPRESSIVE DISORDER, SINGLE EPISODE, UNSPECIFIED Status: Chronic Current Visit: Yes (9) COPD (chronic obstructive pulmonary disease) SNOMED Code(s): 87154191 ICD Code: J44.9 - CHRONIC OBSTRUCTIVE PULMONARY DISEASE, UNSPECIFIED Status: Chronic Current Visit: Yes Qualifiers: COPD type: unspecified COPD Qualified Code(s): J44.9 - Chronic obstructive pulmonary disease, unspecified Problem List Initiated/Reviewed/Updated: Yes Orders Last 24hrs: Active Orders 24 hr Category Date Time Status Admission Status [Patient Status] [ADT] Stat ADT 09/06/20 13:44 Active Intake and Output [RC] QSHIFT Care 09/06/20 14:13 Active Oxygen Therapy [RC] PRN Care 09/06/20 14:13 Active RT Incentive Spirometry [RC] Q1HWA Care 09/06/20 14:22 Active Telemetry Monitoring [Cardiac Monitoring] [RC] . Care 09/06/20 14:23 Active DIRECTED Up With Assistance [RC] ASDIRECTED Care 09/06/20 14:13 Active VTE/DVT Education [RC] PER UNIT ROUTINE Care 09/06/20 14:13 Active Vital Signs [RC] Q4H Care 09/06/20 14:13 Active Regular Diet [DIET] Diet 09/06/20 Lunch Active CBC WITH AUTO DIFF [HEME] AM Lab 09/07/20 05:11 Ordered CBC WITH AUTO DIFF [HEME] AM Lab 09/08/20 05:11 Ordered CBC WITH AUTO DIFF [HEME] AM Lab 09/09/20 05:11 Ordered CBC WITH AUTO DIFF [HEME] AM Lab 09/10/20 05:11 Ordered CBC WITH AUTO DIFF [HEME] AM Lab 09/11/20 05:11 Ordered COMPREHENSIVE METABOLIC PN,CMP [CHEM] AM Lab 09/07/20 05:11 Ordered COMPREHENSIVE METABOLIC PN,CMP [CHEM] AM Lab 09/08/20 05:11 Ordered COMPREHENSIVE METABOLIC PN,CMP [CHEM] AM Lab 09/09/20 05:11 Ordered COMPREHENSIVE METABOLIC PN,CMP [CHEM] AM Lab 09/10/20 05:11 Ordered COMPREHENSIVE METABOLIC PN,CMP [CHEM] AM Lab 09/11/20 05:11 Ordered MAGNESIUM [CHEM] AM Lab 09/07/20 05:11 Ordered MAGNESIUM [CHEM] AM Lab 09/08/20 05:11 Ordered MAGNESIUM [CHEM] AM Lab 09/09/20 05:11 Ordered MAGNESIUM [CHEM] AM Lab 09/10/20 05:11 Ordered MAGNESIUM [CHEM] AM Lab 09/11/20 05:11 Ordered UA RFX DIANNA AND CULT IF INDIC [URIN] Stat Lab 09/06/20 10:53 Ordered Acetaminophen [TylenoL] Med 09/06/20 14:13 Active 650 mg PO Q4H PRN Azithromycin [Zithromax] Med 09/07/20 14:30 Active 500 mg PO Q24H Azithromycin [Zithromax] 500 mg Med 09/06/20 13:45 Active Sodium Chloride 0.9% [Normal Saline (AdvBag)] 250 ml IV ONETIME Enoxaparin [Lovenox] Med 09/06/20 15:00 Active 40 mg SUBCUT Q24H Fluticasone Propionate [Flonase] Med 09/06/20 15:00 Ordered See Dose Instructions NASBOTH DAILY Ondansetron [Zofran] Med 09/06/20 14:13 Active 4 mg IVPUSH Q4H PRN Pantoprazole [ProTONIX] Med 09/07/20 07:30 Active 40 mg PO ACBREAKFAST Remdesivir 100 mg Med 09/07/20 15:00 Active Sodium Chloride 0.9% [Normal Saline] 100 ml IV Q24H Remdesivir 200 mg Med 09/06/20 15:00 Active Sodium Chloride 0.9% [Normal Saline] 250 ml IV ONETIME Sodium Chloride 0.9% [Saline Flush] Med 09/06/20 14:13 Active 2.5 ml FLUSH ASDIRECTED PRN dexAMETHasone Med 09/07/20 09:00 Ordered 6 mg PO DAILY RT Acapella [RESPCARE] Routine Oth 09/06/20 14:22 Active Saline Lock Insert [OM.PC] Routine Oth 09/06/20 14:13 Ordered Resuscitation Status Routine Resus Stat 09/06/20 14:13 Ordered Medication Orders Acetaminophen (Tylenol) 650 mg PO Q4H PRN PRN Reason: Pain (Mild 1-3)/fever Azithromycin (Zithromax) 500 mg PO Q24H JOSETTE Dexamethasone (Dexamethasone) 6 mg PO DAILY [facility] Enoxaparin Sodium (Lovenox) 40 mg SUBCUT Q24H [facility] Fluticasone Propionate (Flonase) 0 gm NASBOTH DAILY [facility] Azithromycin 500 mg/ Sodium (Chloride) 250 mls @ 250 mls/hr IV ONETIME JOSETTE Stop: 09/06/20 16:00 Last Admin: 09/06/20 13:56 Dose: 250 mls/hr Documented by: GLORIA Remdesivir 100 mg/ Sodium (Chloride) 100 mls @ 100 mls/hr IV Q24H JOSETTE Stop: 09/10/20 15:59 Remdesivir 200 mg/ Sodium (Chloride) 250 mls @ 250 mls/hr IV ONETIME ONE Stop: 02/08/21 15:59 Ondansetron HCl (Zofran) 4 mg IVPUSH Q4H PRN PRN Reason: Nausea Pantoprazole Sodium (Protonix) 40 mg PO ACBREAKFAST JOSETTE Sodium Chloride (Saline Flush) 2.5 ml FLUSH ASDIRECTED PRN PRN Reason: Keep Vein Open Assessment/Plan Comment:: This 60-year-old female admitted with acute on chronic hypoxic respiratory f ailure, COVID-19, viral pneumonia 1. Acute on chronic hypoxic respiratory failure/COVID-19/viral pneumonia -Continue to keep oxygen sats greater than 88% due to COPD. Currently needing 2 L wean as possible -Dexamethasone 6 mg p.o. daily x10 days or discharge whichever comes sooner -Remdesivir 200 mg now followed by 100 mg IV daily x4 days -I-S and Acapella -DuoNebs as needed -We did discuss proning as much as possible though this may be limited to to her chronic pain. She reports she will attempt -Monitor LFTs during remdesivir therapy -Lovenox 40 mg daily subcut -Azithromycin 500 mg p.o. daily -Tessalon Perles as needed cough 2. COPD -Does not appear to be in exacerbation Limited wheezing noted -Continue Symbicort and Spiriva per home dosing. -DuoNebs as needed -Continue to monitor may need to go home on oxygen. 3. Hypothyroidism -Continue levothyroxine 4. Daily alcohol use -Denies withdrawal symptoms in the past -CIWA assessment every 4 hours -Ativan protocol per CIWA scores. -Thiamine and folic acid daily 5. Chronic pain syndrome/chronic back pain -We will obtain med rec and restart home medications -Patient unaware of exactly what medication she is taking family will bring them in and will also get list from PCP Dr. Reeves VTE prophylaxis: Lovenox GI prophylaxis: Protonix CODE STATUS: DNR/DNI as expressed explicitly by patient during my exam. Dispo: 2 to 3 days pending improvement.
[2020-09-06] MEDS ORDERED: Fluticasone Propionate Nasal Spray 16 GM Bottle NASBOTH SCH (15:00)
[2020-09-06] MEDS ORDERED: REMDESIVIR 200 MG in Sodium Chloride 0.9% 250 ML IV ONE (15:00)
[2020-09-06] MEDS ORDERED: LORazepam 2 MG/ML SDV IVPUSH PRN (15:02)
[2020-09-06] MEDS: Enoxaparin 40 MG/0.4 ML Syringe SUBCUT SCH (16:15)
[2020-09-06] MEDS ORDERED: traMADol 50 MG Tab PO PRN (16:17)
[2020-09-06] MEDS ORDERED: Baclofen 10 MG Tab PO PRN (16:17)
[2020-09-06] MEDS: Acetaminophen 325 MG Tab PO PRN ×2 (16:51→21:17)
[2020-09-06] MEDS: Albuterol/Ipratropium 3.0-0.5 MG/3 ML Neb Soln NEB SCH ×2 (17:20→21:17)
[2020-09-06] MEDS ORDERED: Budesonide/Formoterol 160-4.5 MCG/Puff 6 GM Inhaler INH SCH (21:00)
[2020-09-06] MEDS: Montelukast 10 MG Tab PO SCH (21:15)
[2020-09-06] MEDS: Gabapentin 300 MG Cap PO SCH (21:15)
[2020-09-06] MEDS: BUDESONIDE INH SCH (21:16)
[2020-09-06] MEDS: FORMOTEROL INH SCH (21:16)
[2020-09-06] MEDS: Celecoxib 100 MG Cap PO SCH (21:16)
[2020-09-06] MEDS: Folic Acid 1 MG Tab PO SCH (21:16)
[2020-09-06] MEDS: Gabapentin 100 MG Cap PO SCH (21:18)
[2020-09-06] MEDS: Fluticasone Propionate Nasal Spray 16 GM Bottle NASBOTH SCH (21:18)
[2020-09-06] MEDS: Thiamine 100 MG Tab PO SCH (21:18)
[2020-09-07] MEDS: Albuterol/Ipratropium 3.0-0.5 MG/3 ML Neb Soln NEB SCH ×6 (01:35→23:30)
[2020-09-07] MEDS: FORMOTEROL INH SCH ×2 (05:53→23:16)
[2020-09-07] MEDS: Tiotropium Inhaler 18 MCG Inhalation Powder Cap Kit of 5 INH SCH (05:53)
[2020-09-07] MEDS: BUDESONIDE INH SCH ×2 (05:53→23:16)
[2020-09-07 06:28] LABS: BLOOD UREA NITROGEN,BUN 12 mg/dL (7.0-18.0); CHLORIDE,CL 106 mmol/L (98-107); GLUCOSE RANDOM 131 mg/dL (74-106); POTASSIUM,K 4.2 mmol/L (3.5-5.1); SODIUM,NA 142 mmol/L (136-145)
[2020-09-07] MEDS: Levothyroxine 100 MCG Tab PO SCH (06:30)
[2020-09-07] MEDS: Acetaminophen 325 MG Tab PO PRN (06:30)
[2020-09-07] MEDS: Pantoprazole 40 MG Tab.CR PO SCH (06:30)
--- NOTE | 2020-09-07 07:51 | PCM.PN ---
- General Info Date of Service: 09/07/20 Admission Dx/Problem (Free Text): Admission Diagnosis/Problem Admission Diagnosis/Problem Hypoxia Subjective Update: Reports he is feeling somewhat better today. Cough has improved slightly. Denies any chest pain. Reports shortness of breath with ambulation especially. Continues to need oxygen but was lowered to 1 L today by respiratory therapy. Continues to have sinus congestion noted some blood in her nose. Will add humidification to oxygen. Functional Status: Reports: Pain Controlled, Tolerating Diet, Ambulating, Urinating - Review of Systems General: Reports: Fatigue, Malaise HEENT: Reports: Sinus Congestion. Denies: Headaches, Sore Throat Pulmonary: Reports: Shortness of Breath, Cough. Denies: Sputum Cardiovascular: Reports: Dyspnea on Exertion. Denies: Chest Pain Gastrointestinal: Reports: No Symptoms. Denies: Abdominal Pain, Nausea, Vomiting Genitourinary: Reports: No Symptoms. Denies: Dysuria, Frequency, Burning Musculoskeletal: Reports: No Symptoms Skin: Reports: No Symptoms Neurological: Reports: No Symptoms Psychiatric: Reports: No Symptoms - Patient Data Vitals - Most Recent: Last Vital Signs Temp 97.3 F 09/07/20 04:35 Pulse 84 09/07/20 04:35 Resp 17 09/07/20 04:35 BP 118/74 09/07/20 04:35 Pulse Ox 90 L 09/07/20 04:35 Weight - Most Recent: 76.385 kg I&O - Last 24 Hours: Intake & Output 09/06/20 09/07/20 09/07/20 22:59 06:59 14:59 Intake Total 650 Output Total 750 Balance -100 Lab Results Last 24 Hours: Laboratory Results - last 24 hr 09/06/20 09/06/20 09/06/20 Range/Units 10:48 11:05 11:05 WBC 5.04 (4.0-11.0) K/uL RBC 4.15 L (4.30-5.90) M/uL Hgb 12.7 (12.0-16.0) g/dL Hct 39.1 (36.0-46.0) % MCV 94.2 (80.0-98.0) fL MCH 30.6 (27.0-32.0) pg MCHC 32.5 (31.0-37.0) g/dL RDW Std Deviation 48.4 (28.0-62.0) fl RDW Coeff of Glo 14 (11.0-15.0) % Plt Count 204 (150-400) K/uL MPV 10.00 (7.40-12.00) fL Neut % (Auto) 84.9 H (48.0-80.0) % Lymph % (Auto) 10.7 L (16.0-40.0) % [place] % (Auto) 4.0 (0.0-15.0) % Eos % (Auto) 0.4 (0.0-7.0) % Baso % (Auto) 0.0 (0.0-1.5) % Neut # (Auto) 4.3 (1.4-5.7) K/uL Lymph # (Auto) 0.5 L (0.6-2.4) K/uL [place] # (Auto) 0.2 (0.0-0.8) K/uL Eos # (Auto) 0.0 (0.0-0.7) K/uL Baso # (Auto) 0.0 (0.0-0.1) K/uL Nucleated RBC % 0.0 /100WBC Nucleated RBCs # 0 K/uL D-Dimer, Quantitative (0.0-0.50) mg/L FEU Sodium 137 (136-145) mmol/L Potassium 4.0 (3.5-5.1) mmol/L Chloride 102 (98-107) mmol/L Carbon Dioxide 27.6 (21.0-32.0) mmol/L BUN 8 (7.0-18.0) mg/dL Creatinine 0.9 (0.6-1.0) mg/dL Est Cr Clr Drug Dosing 57.40 mL/min Estimated GFR (MDRD) > 60.0 ml/min Glucose 111 H (74-106) mg/dL Calcium 8.4 L (8.5-10.1) mg/dL Magnesium (1.8-2.4) mg/dL Total Bilirubin 0.3 (0.2-1.0) mg/dL AST 20 (15-37) IU/L ALT 16 (14-63) IU/L Alkaline Phosphatase 62 (46-116) U/L Troponin I < 0.050 (0.000-0.056) ng/mL Total Protein 7.2 (6.4-8.2) g/dL Albumin 2.8 L (3.4-5.0) g/dL Globulin 4.4 H (2.6-4.0) g/dL Albumin/Globulin Ratio 0.6 L (0.9-1.6) Urine Color Urine Appearance Urine pH (5.0-8.0) Ur Specific [place] (1.001-1.035) Urine Protein (NEGATIVE) mg/dL Urine Glucose (UA) (NEGATIVE) mg/dL Urine Ketones (NEGATIVE) mg/dL Urine Occult Blood (NEGATIVE) Urine Nitrite (NEGATIVE) Urine Bilirubin (NEGATIVE) Urine Urobilinogen (<2.0) EU/dL Ur Leukocyte Esterase (NEGATIVE) Urine RBC (0-2/HPF) Urine WBC (0-5/HPF) Ur Epithelial Cells (NONE-FEW) Urine Bacteria (NEGATIVE) Urine Mucus (NONE-MOD) Influenza Type A RNA NEGATIVE (NEGATIVE) Influenza Type B RNA NEGATIVE (NEGATIVE) SARS-CoV-2 RNA (LAURI) POSITIVE H (NEGATIVE) 09/06/20 09/06/20 09/07/20 Range/Units 11:05 21:25 05:53 WBC 3.97 L (4.0-11.0) K/uL RBC 3.96 L (4.30-5.90) M/uL Hgb 11.9 L (12.0-16.0) g/dL Hct 36.9 (36.0-46.0) % MCV 93.2 (80.0-98.0) fL MCH 30.1 (27.0-32.0) pg MCHC 32.2 (31.0-37.0) g/dL RDW Std Deviation 46.9 (28.0-62.0) fl RDW Coeff of Glo 14 (11.0-15.0) % Plt Count 222 (150-400) K/uL MPV 9.90 (7.40-12.00) fL Neut % (Auto) 79.8 (48.0-80.0) % Lymph % (Auto) 16.4 (16.0-40.0) % [place] % (Auto) 3.8 (0.0-15.0) % Eos % (Auto) 0.0 (0.0-7.0) % Baso % (Auto) 0.0 (0.0-1.5) % Neut # (Auto) 3.2 (1.4-5.7) K/uL Lymph # (Auto) 0.7 (0.6-2.4) K/uL [place] # (Auto) 0.2 (0.0-0.8) K/uL Eos # (Auto) 0.0 (0.0-0.7) K/uL Baso # (Auto) 0.0 (0.0-0.1) K/uL Nucleated RBC % 0.0 /100WBC Nucleated RBCs # 0 K/uL D-Dimer, Quantitative 0.83 H (0.0-0.50) mg/L FEU Sodium (136-145) mmol/L Potassium (3.5-5.1) mmol/L Chloride (98-107) mmol/L Carbon Dioxide (21.0-32.0) mmol/L BUN (7.0-18.0) mg/dL Creatinine (0.6-1.0) mg/dL Est Cr Clr Drug Dosing mL/min Estimated GFR (MDRD) ml/min Glucose (74-106) mg/dL Calcium (8.5-10.1) mg/dL Magnesium (1.8-2.4) mg/dL Total Bilirubin (0.2-1.0) mg/dL AST (15-37) IU/L ALT (14-63) IU/L Alkaline Phosphatase (46-116) U/L Troponin I (0.000-0.056) ng/mL Total Protein (6.4-8.2) g/dL Albumin (3.4-5.0) g/dL Globulin (2.6-4.0) g/dL Albumin/Globulin Ratio (0.9-1.6) Urine Color YELLOW Urine Appearance CLEAR Urine pH 6.5 (5.0-8.0) Ur Specific [place] 1.010 (1.001-1.035) Urine Protein TRACE H (NEGATIVE) mg/dL Urine Glucose (UA) 100 H (NEGATIVE) mg/dL Urine Ketones NEGATIVE (NEGATIVE) mg/dL Urine Occult Blood NEGATIVE (NEGATIVE) Urine Nitrite NEGATIVE (NEGATIVE) Urine Bilirubin NEGATIVE (NEGATIVE) Urine Urobilinogen 0.2 (<2.0) EU/dL Ur Leukocyte Esterase NEGATIVE (NEGATIVE) Urine RBC 0-1 (0-2/HPF) Urine WBC 0-2 (0-5/HPF) Ur Epithelial Cells MODERATE (NONE-FEW) Urine Bacteria FEW (NEGATIVE) Urine Mucus LIGHT (NONE-MOD) Influenza Type A RNA (NEGATIVE) Influenza Type B RNA (NEGATIVE) SARS-CoV-2 RNA (LAURI) (NEGATIVE) 09/07/20 Range/Units 05:53 WBC (4.0-11.0) K/uL RBC (4.30-5.90) M/uL Hgb (12.0-16.0) g/dL Hct (36.0-46.0) % MCV (80.0-98.0) fL MCH (27.0-32.0) pg MCHC (31.0-37.0) g/dL RDW Std Deviation (28.0-62.0) fl RDW Coeff of Glo (11.0-15.0) % Plt Count (150-400) K/uL MPV (7.40-12.00) fL Neut % (Auto) (48.0-80.0) % Lymph % (Auto) (16.0-40.0) % [place] % (Auto) (0.0-15.0) % Eos % (Auto) (0.0-7.0) % Baso % (Auto) (0.0-1.5) % Neut # (Auto) (1.4-5.7) K/uL Lymph # (Auto) (0.6-2.4) K/uL [place] # (Auto) (0.0-0.8) K/uL Eos # (Auto) (0.0-0.7) K/uL Baso # (Auto) (0.0-0.1) K/uL Nucleated RBC % /100WBC Nucleated RBCs # K/uL D-Dimer, Quantitative (0.0-0.50) mg/L FEU Sodium 142 (136-145) mmol/L Potassium 4.2 (3.5-5.1) mmol/L Chloride 106 (98-107) mmol/L Carbon Dioxide 27.0 (21.0-32.0) mmol/L BUN 12 (7.0-18.0) mg/dL Creatinine 0.9 (0.6-1.0) mg/dL Est Cr Clr Drug Dosing 57.40 mL/min Estimated GFR (MDRD) > 60.0 ml/min Glucose 131 H (74-106) mg/dL Calcium 8.2 L (8.5-10.1) mg/dL Magnesium 2.5 H (1.8-2.4) mg/dL Total Bilirubin 0.2 (0.2-1.0) mg/dL AST 20 (15-37) IU/L ALT 22 (14-63) IU/L Alkaline Phosphatase 57 (46-116) U/L Troponin I (0.000-0.056) ng/mL Total Protein 6.8 (6.4-8.2) g/dL Albumin 2.5 L (3.4-5.0) g/dL Globulin 4.3 H (2.6-4.0) g/dL Albumin/Globulin Ratio 0.6 L (0.9-1.6) Urine Color Urine Appearance Urine pH (5.0-8.0) Ur Specific [place] (1.001-1.035) Urine Protein (NEGATIVE) mg/dL Urine Glucose (UA) (NEGATIVE) mg/dL Urine Ketones (NEGATIVE) mg/dL Urine Occult Blood (NEGATIVE) Urine Nitrite (NEGATIVE) Urine Bilirubin (NEGATIVE) Urine Urobilinogen (<2.0) EU/dL Ur Leukocyte Esterase (NEGATIVE) Urine RBC (0-2/HPF) Urine WBC (0-5/HPF) Ur Epithelial Cells (NONE-FEW) Urine Bacteria (NEGATIVE) Urine Mucus (NONE-MOD) Influenza Type A RNA (NEGATIVE) Influenza Type B RNA (NEGATIVE) SARS-CoV-2 RNA (LAURI) (NEGATIVE) Med Orders - Current: Current Medications Acetaminophen (Tylenol) 650 mg PO Q4H PRN PRN Reason: Pain (Mild 1-3)/fever Last Admin: 09/07/20 06:30 Dose: 650 mg Documented by: Albuterol/Ipratropium (Duoneb 3.0-0.5 Mg/3 Ml) 3 ml NEB Q4HRRT [facility]OSETTE Last Admin: 09/07/20 05:53 Dose: 3 ml Documented by: Aspirin (Halfprin) 81 mg PO DAILY [facility] Atorvastatin Calcium (Lipitor) 40 mg PO BEDTIME [facility] Azithromycin (Zithromax) 500 mg PO Q24H [facility] Baclofen (Lioresal) 10 mg PO TID PRN PRN Reason: Pain Budesonide/Formoterol Fumarate (Symbicort 160-4.5 Mcg) 0 gm INH BIDRT [facility] Last Admin: 09/07/20 05:53 Dose: 1 inhalation Documented by: Celecoxib (Celebrex) 100 mg PO BID [facility] Last Admin: 09/06/20 21:16 Dose: 100 mg Documented by: Cholecalciferol (Vitamin D3) 10 mcg PO DAILY [facility] Dexamethasone (Dexamethasone) 6 mg PO DAILY [facility] Enoxaparin Sodium (Lovenox) 40 mg SUBCUT Q24H [facility] Last Admin: 09/06/20 16:15 Dose: 40 mg Documented by: Fluticasone Propionate (Flonase) 0 gm NASBOTH BID [facility] Last Admin: 09/06/20 21:18 Dose: 2 spray Documented by: Folic Acid (Folic Acid) 1 mg PO BEDTIME [facility] Last Admin: 09/06/20 21:16 Dose: 1 mg Documented by: Gabapentin (Neurontin) 300 mg PO BID [facility] Last Admin: 09/06/20 21:15 Dose: 300 mg Documented by: Gabapentin (Neurontin) 100 mg PO BID [facility] Last Admin: 09/06/20 21:18 Dose: 100 mg Documented by: Remdesivir 100 mg/ Sodium (Chloride) 100 mls @ 100 mls/hr IV Q24H [facility] Stop: 09/10/20 15:59 Levothyroxine Sodium (Synthroid) 100 mcg PO ACBRK [facility] Last Admin: 09/07/20 06:30 Dose: 100 mcg Documented by: Lorazepam (Ativan) 0 mg IVPUSH Q4H PRN; Protocol PRN Reason: CIWAA Montelukast Sodium (Singulair) 10 mg PO BEDTIME [facility] Last Admin: 09/06/20 21:15 Dose: 10 mg Documented by: Multivitamins/Minerals/Vitamin C (Tab-A-Norm) 1 tab PO DAILY [facility] Ondansetron HCl (Zofran) 4 mg IVPUSH Q4H PRN PRN Reason: Nausea Pantoprazole Sodium (Protonix) 40 mg PO ACBREAKFAST [facility] Last Admin: 09/07/20 06:30 Dose: 40 mg Documented by: Mirabegron 50 Mg 1 each PO DAILY [facility] Sodium Chloride (Saline Flush) 2.5 ml FLUSH ASDIRECTED PRN PRN Reason: Keep Vein Open Thiamine HCl (Vitamin B-1) 100 mg PO BEDTIME [facility] Last Admin: 09/06/20 21:18 Dose: 100 mg Documented by: Tiotropium [place] (Spiriva Handihaler) 18 mcg INH DAILYRT [facility] Last Admin: 09/07/20 05:53 Dose: 1 cap Documented by: Tramadol HCl (Ultram) 50 mg PO Q24H PRN PRN Reason: Pain Discontinued Medications Fluticasone Propionate (Flonase) 0 gm NASBOTH DAILY [facility] Last Admin: 09/06/20 16:13 Dose: 2 inhalation Documented by: Azithromycin 500 mg/ Sodium (Chloride) 250 mls @ 250 mls/hr IV ONETIME [facility] Stop: 09/06/20 16:00 Last Admin: 09/06/20 13:56 Dose: 250 mls/hr Documented by: Remdesivir 200 mg/ Sodium (Chloride) 250 mls @ 250 mls/hr IV ONETIME ONE Stop: 09/06/20 15:59 Last Admin: 09/06/20 16:20 Dose: 250 mls/hr Documented by: Iopamidol (Isovue Multipack-370 (76%)) 80 ml IVPUSH ONETIME STA Stop: 09/06/20 12:51 Last Admin: 09/06/20 12:55 Dose: 80 ml Documented by: Ketorolac Tromethamine (Toradol) 30 mg IVPUSH ONETIME ONE Stop: 09/06/20 11:09 Last Admin: 09/06/20 11:14 Dose: 30 mg Documented by: Methylprednisolone Sodium Succinate (Solu-Medrol) 125 mg IVPUSH ONETIME ONE Stop: 09/06/20 10:47 Last Admin: 09/06/20 11:14 Dose: 125 mg Documented by: Budesonide/Formoterol 160-4.5 Mcg/Puff 6 Gm Inhaler 2 each INH BIDRT [facility] Sodium Chloride (Saline Flush) 10 ml FLUSH ASDIRECTED PRN PRN Reason: Keep Vein Open Last Admin: 09/06/20 11:14 Dose: 10 ml Documented by: Sodium Chloride (Saline Flush) 2.5 ml FLUSH ASDIRECTED PRN PRN Reason: Keep Vein Open Last Admin: 09/06/20 11:15 Dose: 2.5 ml Documented by: - Exam General: Alert, Oriented, Cooperative, No Acute Distress Lungs: Decreased Breath Sounds, Rhonchi. No: Normal Respiratory Effort (Dyspnea) Cardiovascular: Regular Rate, Regular Rhythm GI/Abdominal Exam: Normal Bowel Sounds, Soft, Non-Tender Back Exam: Normal Inspection, Full Range of Motion Extremities: Normal Inspection, Normal Range of Motion, Non-Tender, No Pedal Edema Neurological: No New Focal Deficit Psy/Mental Status: Alert, Normal Affect, Normal Mood Sepsis Event Note - Evaluation Sepsis Screening Result: No Definite Risk - Focused Exam Vital Signs: Vital Signs Temp Pulse Resp BP Pulse Ox 09/07/20 04:35 97.3 F 84 17 118/74 90 L 09/06/20 23:34 97.2 F 73 18 97/59 L 89 L 09/06/20 19:52 96.6 F L 77 18 100/67 90 L - Problem List & Annotations (1) Acute and chronic respiratory failure with hypoxia SNOMED Code(s): 18809375, 247561369 Code(s): J96.21 - ACUTE AND CHRONIC RESPIRATORY FAILURE WITH HYPOXIA Status: Acute Current Visit: Yes (2) COVID-19 virus infection SNOMED Code(s): 620183215 Code(s): U07.1 - COVID-19 Status: Acute Current Visit: Yes (3) HLD (hyperlipidemia) SNOMED Code(s): 35128839 Code(s): E78.5 - HYPERLIPIDEMIA, UNSPECIFIED Status: Chronic Current V isit: Yes (4) Hypothyroidism SNOMED Code(s): 30763838 Code(s): E03.9 - HYPOTHYROIDISM, UNSPECIFIED Status: Chronic Current Visit: Yes (5) Overactive bladder SNOMED Code(s): 202607061 Code(s): N32.81 - OVERACTIVE BLADDER Status: Chronic Current Visit: Yes (6) History of pulmonary embolus (PE) SNOMED Code(s): 004111073 Code(s): Z86.711 - PERSONAL HISTORY OF PULMONARY EMBOLISM Status: Chronic Current Visit: Yes (7) Chronic pain syndrome SNOMED Code(s): 011747985 Code(s): G89.4 - CHRONIC PAIN SYNDROME Status: Chronic Current Visit: Yes (8) Depression SNOMED Code(s): 45858093 Code(s): F32.9 - MAJOR DEPRESSIVE DISORDER, SINGLE EPISODE, UNSPECIFIED Status: Chronic Current Visit: Yes (9) COPD (chronic obstructive pulmonary disease) SNOMED Code(s): 43501739 Code(s): J44.9 - CHRONIC OBSTRUCTIVE PULMONARY DISEASE, UNSPECIFIED Status: Chronic Current Visit: Yes Qualifiers: COPD type: unspecified COPD Qualified Code(s): J44.9 - Chronic obstructive pulmonary disease, unspecified - Problem List Review Problem List Initiated/Reviewed/Updated: Yes - My Orders Last 24 Hours: My Active Orders 09/06/20 Lunch Regular Diet [DIET] 09/06/20 14:13 Intake and Output [RC] Q12H Oxygen Therapy [RC] PRN Up With Assistance [RC] ASDIRECTED VTE/DVT Education [RC] PER UNIT ROUTINE Vital Signs [RC] Q4H Acetaminophen [TylenoL] 650 mg PO Q4H PRN Ondansetron [Zofran] 4 mg IVPUSH Q4H PRN Sodium Chloride 0.9% [Saline Flush] 2.5 ml FLUSH ASDIRECTED PRN Saline Lock Insert [OM.PC] Routine 09/06/20 14:22 RT Incentive Spirometry [RC] Q1HWA RT Acapella [RESPCARE] Routine 09/06/20 14:23 Telemetry Monitoring [Cardiac Monitoring] [RC] Q8H 09/06/20 14:56 Communication Order [RC] ROUTINE 09/06/20 15:00 Enoxaparin [Lovenox] 40 mg SUBCUT Q24H 09/06/20 15:01 Resuscitation Status Routine 09/06/20 15:02 CIWAA Assessment [RC] Q4H LORazepam [Ativan] See Protocol IVPUSH Q4H PRN 09/06/20 15:33 RT Aerosol Therapy [RC] ASDIRECTED 09/06/20 15:34 RT Post Treatment Assessment [RC] Click to Edit RT Pre-Treatment Assessment [RC] Click to Edit 09/06/20 16:17 Baclofen [Lioresal] 10 mg PO TID PRN traMADol [Ultram] 50 mg PO Q24H PRN 09/06/20 18:00 Albuterol/Ipratropium [DuoNeb 3.0-0.5 MG/3 ML] 3 ml NEB Q4HRRT 09/06/20 21:00 Budesonide/Formoterol [Symbicort 160-4.5 MCG] 0 gm INH BIDRT Celecoxib [CeleBREX] 100 mg PO BID Fluticasone Propionate [Flonase] 0 gm NASBOTH BID Folic Acid 1 mg PO BEDTIME Gabapentin [Neurontin] 300 mg PO BID Montelukast [Singulair] 10 mg PO BEDTIME Thiamine [Vitamin B-1] 100 mg PO BEDTIME 09/07/20 06:00 Tiotropium [Spiriva HandiHaler] 18 mcg INH DAILYRT 09/07/20 07:30 Levothyroxine [Synthroid] 100 mcg PO ACBRK Pantoprazole [ProTONIX] 40 mg PO ACBREAKFAST 09/07/20 09:00 Aspirin [Halfprin] 81 mg PO DAILY Cholecalciferol (Vitamin D3) [Vitamin D3] 10 mcg PO DAILY Multivitamins [Tab-A-Norm] 1 tab PO DAILY Patient's Own Medication [Ptom] 1 each PO DAILY dexAMETHasone 6 mg PO DAILY 09/07/20 14:30 Azithromycin [Zithromax] 500 mg PO Q24H 09/07/20 15:00 Remdesivir 100 mg Sodium Chloride 0.9% [Normal Saline] 100 ml IV Q24H 09/07/20 21:00 atorvaSTATin [Lipitor] 40 mg PO BEDTIME 09/08/20 05:11 CBC WITH AUTO DIFF [HEME] AM COMPREHENSIVE METABOLIC PN,CMP [CHEM] AM MAGNESIUM [CHEM] AM 09/09/20 05:11 CBC WITH AUTO DIFF [HEME] AM COMPREHENSIVE METABOLIC PN,CMP [CHEM] AM MAGNESIUM [CHEM] AM 09/10/20 05:11 CBC WITH AUTO DIFF [HEME] AM COMPREHENSIVE METABOLIC PN,CMP [CHEM] AM MAGNESIUM [CHEM] AM 09/11/20 05:11 CBC WITH AUTO DIFF [HEME] AM COMPREHENSIVE METABOLIC PN,CMP [CHEM] AM MAGNESIUM [CHEM] AM - Plan Plan:: This 60-year-old female admitted with acute on chronic hypoxic respiratory failure, COVID-19, viral pneumonia 1. Acute on chronic hypoxic respiratory failure/COVID-19/viral pneumonia -Feeling somewhat better today. Continue to wean oxygen as needed -Continue to keep oxygen sats greater than 88% due to COPD. Currently needing 2 L wean as possible -Dexamethasone 6 mg p.o. daily x10 days or discharge whichever comes sooner -Remdesivir 100 mg IV daily x4 days -I-S and Acapella -DuoNebs as needed -We did discuss proning as much as possible though this may be limited to to her chronic pain. She reports she will attempt -Monitor LFTs during remdesivir therapy -Lovenox 40 mg daily subcut -Azithromycin 500 mg p.o. daily -Tessalon Perles as needed cough 2. COPD -Continue Symbicort and Spiriva per home dosing. -DuoNebs as needed -Continue to monitor may need to go home on oxygen. 3. Hypothyroidism -Continue levothyroxine 4. Daily alcohol use -CIWA assessment every 4 hours -Ativan protocol per CIWA scores. -Thiamine and folic acid daily 5. Chronic pain syndrome/chronic back pain -We will obtain med rec and restart home medications -Patient unaware of exactly what medication she is taking family will bring them in and will also get list from PCP Dr. Reeves VTE prophylaxis: Lovenox GI prophylaxis: Protonix CODE STATUS: DNR/DNI as expressed explicitly by patient during my exam. Dispo: 2 to 3 days pending improvement.
[2020-09-07] MEDS: Multivitamin Tab PO SCH (08:05)
[2020-09-07] MEDS: Aspirin 81 MG Tab.EC PO SCH (08:06)
[2020-09-07] MEDS: Gabapentin 300 MG Cap PO SCH ×2 (08:06→20:12)
[2020-09-07] MEDS: Gabapentin 100 MG Cap PO SCH ×2 (08:06→20:12)
[2020-09-07] MEDS: Cholecalciferol (Vitamin D3) 10 MCG Tab PO SCH (08:06)
[2020-09-07] MEDS: Celecoxib 100 MG Cap PO SCH ×2 (08:06→20:12)
[2020-09-07] MEDS: Dexamethasone 4 MG Tab PO SCH (08:07)
[2020-09-07] MEDS: Fluticasone Propionate Nasal Spray 16 GM Bottle NASBOTH SCH ×2 (08:08→20:11)
[2020-09-07] MEDS: MIRABEGRON 50 MG PO SCH (08:14)
[2020-09-07] MEDS ORDERED: Bisacodyl 10 MG Supp RECTAL PRN (10:33)
[2020-09-07] MEDS: Polyethylene Glycol 3350 Powder 17 GM Packet PO PRN (11:05)
[2020-09-07] MEDS: Enoxaparin 40 MG/0.4 ML Syringe SUBCUT SCH (14:40)
[2020-09-07] MEDS: Azithromycin 250 MG Tab PO SCH (14:40)
[2020-09-07] MEDS: REMDESIVIR 100 MG in Sodium Chloride 0.9% 100 ML IV SCH (14:44)
[2020-09-07] MEDS: Folic Acid 1 MG Tab PO SCH (20:11)
[2020-09-07] MEDS: Montelukast 10 MG Tab PO SCH (20:12)
[2020-09-07] MEDS: atorvaSTATin 40 MG Tab PO SCH (20:12)
[2020-09-07] MEDS: Thiamine 100 MG Tab PO SCH (21:16)
[2020-09-08] MEDS: Albuterol/Ipratropium 3.0-0.5 MG/3 ML Neb Soln NEB SCH ×6 (03:56→23:58)
[2020-09-08 06:28] LABS: BLOOD UREA NITROGEN,BUN 11 mg/dL (7.0-18.0); CARBON DIOXIDE,CO2 27.6 mmol/L (21.0-32.0); CHLORIDE,CL 106 mmol/L (98-107); GLUCOSE RANDOM 111 mg/dL (74-106); POTASSIUM,K 3.7 mmol/L (3.5-5.1); SODIUM,NA 142 mmol/L (136-145)
[2020-09-08] MEDS: Tiotropium Inhaler 18 MCG Inhalation Powder Cap Kit of 5 INH SCH (06:49)
[2020-09-08] MEDS: BUDESONIDE INH SCH ×2 (06:49→20:28)
[2020-09-08] MEDS: Levothyroxine 100 MCG Tab PO SCH (06:49)
[2020-09-08] MEDS: Pantoprazole 40 MG Tab.CR PO SCH (06:49)
[2020-09-08] MEDS: FORMOTEROL INH SCH ×2 (06:49→20:28)
[2020-09-08] MEDS: Acetaminophen 325 MG Tab PO PRN (06:49)
[2020-09-08] MEDS ORDERED: Aloe Vera/Sodium Chloride Gel 14.1 GM Tube NAS PRN (08:38)
[2020-09-08] MEDS ORDERED: Ketorolac 30 MG/ML SDV IVPUSH ONE (08:38)
--- NOTE | 2020-09-08 08:39 | PCM.PN ---
- General Info Date of Service: 09/08/20 Admission Dx/Problem (Free Text): Admission Diagnosis/Problem Admission Diagnosis/Problem Hypoxia Subjective Update: Reports she has frontal headache likely from sinus pressure. Tylenol has not helped this morning. Denies any chest pain. Reports continued dyspnea on exertion. Cough is intermittent and has lessened. She is feeling better overall but continues to need oxygen. Functional Status: Reports: Tolerating Diet, Ambulating (Headache), Urinating. Denies: Pain Controlled - Review of Systems General: Reports: Fatigue, Malaise HEENT: Reports: Headaches. Denies: Visual Changes (Frontal) Pulmonary: Reports: Shortness of Breath, Cough (Intermittent), Wheezing. Denies: Sputum Cardiovascular: Reports: Dyspnea on Exertion Gastrointestinal: Reports: Constipation. Denies: Abdominal Pain, Nausea, Vomiting Genitourinary: Reports: No Symptoms. Denies: Dysuria, Frequency, Burning Musculoskeletal: Reports: No Symptoms. Denies: Neck Pain Skin: Reports: No Symptoms Neurological: Reports: No Symptoms Psychiatric: Reports: No Symptoms - Patient Data Vitals - Most Recent: Last Vital Signs Temp 97.5 F 09/08/20 03:42 Pulse 87 09/08/20 03:42 Resp 18 09/08/20 03:42 BP 109/50 L 09/08/20 03:42 Pulse Ox 91 L 09/08/20 03:42 Weight - Most Recent: 76.385 kg I&O - Last 24 Hours: Intake & Output 09/07/20 09/08/20 09/08/20 22:59 06:59 14:59 Intake Total 720 590 Output Total 1000 550 Balance -280 40 Lab Results Last 24 Hours: Laboratory Results - last 24 hr 09/08/20 09/08/20 Range/Units 05:35 05:35 WBC 6.68 (4.0-11.0) K/uL RBC 3.78 L (4.30-5.90) M/uL Hgb 11.4 L (12.0-16.0) g/dL Hct 35.3 L (36.0-46.0) % MCV 93.4 (80.0-98.0) fL MCH 30.2 (27.0-32.0) pg MCHC 32.3 (31.0-37.0) g/dL RDW Std Deviation 47.4 (28.0-62.0) fl RDW Coeff of Glo 14 (11.0-15.0) % Plt Count 267 (150-400) K/uL MPV 10.10 (7.40-12.00) fL Neut % (Auto) 74.6 (48.0-80.0) % Lymph % (Auto) 18.7 (16.0-40.0) % [place] % (Auto) 6.6 (0.0-15.0) % Eos % (Auto) 0.0 (0.0-7.0) % Baso % (Auto) 0.1 (0.0-1.5) % Neut # (Auto) 5.0 (1.4-5.7) K/uL Lymph # (Auto) 1.3 (0.6-2.4) K/uL [place] # (Auto) 0.4 (0.0-0.8) K/uL Eos # (Auto) 0.0 (0.0-0.7) K/uL Baso # (Auto) 0.0 (0.0-0.1) K/uL Nucleated RBC % 0.0 /100WBC Nucleated RBCs # 0 K/uL Sodium 142 (136-145) mmol/L Potassium 3.7 (3.5-5.1) mmol/L Chloride 106 (98-107) mmol/L Carbon Dioxide 27.6 (21.0-32.0) mmol/L BUN 11 (7.0-18.0) mg/dL Creatinine 0.8 (0.6-1.0) mg/dL Est Cr Clr Drug Dosing 64.58 mL/min Estimated GFR (MDRD) > 60.0 ml/min Glucose 111 H (74-106) mg/dL Calcium 8.1 L (8.5-10.1) mg/dL Magnesium 2.3 (1.8-2.4) mg/dL Total Bilirubin 0.2 (0.2-1.0) mg/dL AST 25 (15-37) IU/L ALT 25 (14-63) IU/L Alkaline Phosphatase 48 (46-116) U/L Total Protein 6.2 L (6.4-8.2) g/dL Albumin 2.4 L (3.4-5.0) g/dL Globulin 3.8 (2.6-4.0) g/dL Albumin/Globulin Ratio 0.6 L (0.9-1.6) Med Orders - Current: Current Medications Acetaminophen (Tylenol) 650 mg PO Q4H PRN PRN Reason: Pain (Mild 1-3)/fever Last Admin: 09/08/20 06:49 Dose: 650 mg Documented by: Albuterol/Ipratropium (Duoneb 3.0-0.5 Mg/3 Ml) 3 ml NEB Q4HRRT [facility] Last Admin: 09/08/20 06:04 Dose: 3 ml Documented by: Aspirin (Halfprin) 81 mg PO DAILY [facility] Last Admin: 09/07/20 08:06 Dose: 81 mg Documented by: Atorvastatin Calcium (Lipitor) 40 mg PO BEDTIME [facility] Last Admin: 09/07/20 20:12 Dose: 40 mg Documented by: Azithromycin (Zithromax) 500 mg PO Q24H [facility] Last Admin: 09/07/20 14:40 Dose: 500 mg Documented by: Baclofen (Lioresal) 10 mg PO TID PRN PRN Reason: Pain Bisacodyl (Dulcolax) 10 mg RECTAL DAILY PRN PRN Reason: Constipation Budesonide/Formoterol Fumarate (Symbicort 160-4.5 Mcg) 0 gm INH BIDRT [facility] Last Admin: 09/08/20 06:49 Dose: 2 inhalation Documented by: Celecoxib (Celebrex) 100 mg PO BID [facility] Last Admin: 09/07/20 20:12 Dose: 100 mg Documented by: Cholecalciferol (Vitamin D3) 10 mcg PO DAILY [facility] Last Admin: 09/07/20 08:06 Dose: 10 mcg Documented by: Dexamethasone (Dexamethasone) 6 mg PO DAILY [facility] Last Admin: 09/07/20 08:07 Dose: 6 mg Documented by: Enoxaparin Sodium (Lovenox) 40 mg SUBCUT Q24H [facility] Last Admin: 09/07/20 14:40 Dose: 40 mg Documented by: Fluticasone Propionate (Flonase) 0 gm NASBOTH BID [facility] Last Admin: 09/07/20 20:11 Dose: 2 spray Documented by: Folic Acid (Folic Acid) 1 mg PO BEDTIME [facility] Last Admin: 09/07/20 20:11 Dose: 1 mg Documented by: Gabapentin (Neurontin) 300 mg PO BID [facility] Last Admin: 09/07/20 20:12 Dose: 300 mg Documented by: Gabapentin (Neurontin) 100 mg PO BID [facility] Last Admin: 09/07/20 20:12 Dose: 100 mg Documented by: Remdesivir 100 mg/ Sodium (Chloride) 100 mls @ 100 mls/hr IV Q24H [facility] Stop: 09/10/20 15:59 Last Admin: 09/07/20 14:44 Dose: 100 mls/hr Documented by: Ketorolac Tromethamine (Toradol) 30 mg IVPUSH ONETIME ONE Stop: 09/08/20 08:39 Levothyroxine Sodium (Synthroid) 100 mcg PO ACBRK [facility] Last Admin: 09/08/20 06:49 Dose: 100 mcg Documented by: Loratadine (Claritin) 10 mg PO DAILY [facility] Lorazepam (Ativan) 0 mg IVPUSH Q4H PRN; Protocol PRN Reason: CIWAA Montelukast Sodium (Singulair) 10 mg PO BEDTIME [facility] Last Admin: 09/07/20 20:12 Dose: 10 mg Documented by: Multivitamins/Minerals/Vitamin C (Tab-A-Norm) 1 tab PO DAILY [facility] Last Admin: 09/07/20 08:05 Dose: 1 tab Documented by: Ondansetron HCl (Zofran) 4 mg IVPUSH Q4H PRN PRN Reason: Nausea Pantoprazole Sodium (Protonix) 40 mg PO ACBREAKFAST [facility] Last Admin: 09/08/20 06:49 Dose: 40 mg Documented by: Mirabegron 50 Mg 1 each PO DAILY [facility] Last Admin: 09/07/20 08:14 Dose: 1 each Documented by: Polyethylene Glycol (Miralax) 17 gm PO DAILY PRN PRN Reason: Constipation Last Admin: 09/07/20 11:05 Dose: 17 gm Documented by: Sodium Chloride (Saline Flush) 2.5 ml FLUSH ASDIRECTED PRN PRN Reason: Keep Vein Open Sodium Chloride ([place] Saline Nasal Gel) 0 gm FREDA ASDIRECTED PRN PRN Reason: dry nose Thiamine HCl (Vitamin B-1) 100 mg PO BEDTIME [facility] Last Admin: 09/07/20 21:16 Dose: 100 mg Documented by: Tiotropium [place] (Spiriva Handihaler) 18 mcg INH DAILYRT [facility] Last Admin: 09/08/20 06:49 Dose: 1 cap Documented by: Tramadol HCl (Ultram) 50 mg PO Q24H PRN PRN Reason: Pain Discontinued Medications Fluticasone Propionate (Flonase) 0 gm NASBOTH DAILY [facility] Last Admin: 09/06/20 16:13 Dose: 2 inhalation Documented by: Azithromycin 500 mg/ Sodium (Chloride) 250 mls @ 250 mls/hr IV ONETIME JOSETTE Stop: 09/06/20 16:00 Last Admin: 09/06/20 13:56 Dose: 250 mls/hr Documented by: Remdesivir 200 mg/ Sodium (Chloride) 250 mls @ 250 mls/hr IV ONETIME ONE Stop: 09/06/20 15:59 Last Admin: 09/06/20 16:20 Dose: 250 mls/hr Documented by: Iopamidol (Isovue Multipack-370 (76%)) 80 ml IVPUSH ONETIME STA Stop: 09/06/20 12:51 Last Admin: 09/06/20 12:55 Dose: 80 ml Documented by: Ketorolac Tromethamine (Toradol) 30 mg IVPUSH ONETIME ONE Stop: 09/06/20 11:09 Last Admin: 09/06/20 11:14 Dose: 30 mg Documented by: Methylprednisolone Sodium Succinate (Solu-Medrol) 125 mg IVPUSH ONETIME ONE Stop: 09/06/20 10:47 Last Admin: 09/06/20 11:14 Dose: 125 mg Documented by: Budesonide/Formoterol 160-4.5 Mcg/Puff 6 Gm Inhaler 2 each INH BIDRT [facility] Sodium Chloride (Saline Flush) 10 ml FLUSH ASDIRECTED PRN PRN Reason: Keep Vein Open Last Admin: 09/06/20 11:14 Dose: 10 ml Documented by: Sodium Chloride (Saline Flush) 2.5 ml FLUSH ASDIRECTED PRN PRN Reason: Keep Vein Open Last Admin: 09/06/20 11:15 Dose: 2.5 ml Documented by: - Exam Quality Assessment: Supplemental Oxygen (1 L) General: Alert, Oriented, Cooperative, No Acute Distress Lungs: Normal Respiratory Effort, Decreased Breath Sounds, Rhonchi, Wheezing Cardiovascular: Regular Rate, Regular Rhythm, No Murmurs GI/Abdominal Exam: Normal Bowel Sounds, Soft, Non-Tender Back Exam: Normal Inspection Extremities: Normal Inspection, Normal Range of Motion, Non-Tender, No Pedal Edema Wound/Incisions: Healing Well Neurological: No New Focal Deficit Psy/Mental Status: Alert, Normal Affect, Normal Mood Sepsis Event Note - Evaluation Sepsis Screening Result: No Definite Risk - Focused Exam Vital Signs: Vital Signs Temp Pulse Resp BP Pulse Ox 09/08/20 03:42 97.5 F 87 18 109/50 L 91 L 09/07/20 23:14 97.2 F 76 18 106/73 92 L - Problem List & Annotations (1) Acute and chronic respiratory failure with hypoxia SNOMED Code(s): 74312196, 248605450 Code(s): J96.21 - ACUTE AND CHRONIC RESPIRATORY FAILURE WITH HYPOXIA Status: Acute Current Visit: Yes (2) COVID-19 virus infection SNOMED Code(s): 517583141 Code(s): U07.1 - COVID-19 Status: Acute Current Visit: Yes (3) HLD (hyperlipidemia) SNOMED Code(s): 29670344 Code(s): E78.5 - HYPERLIPIDEMIA, UNSPECIFIED Status: Chronic Current Visit: Yes (4) Hypothyroidism SNOMED Code(s): 24412345 Code(s): E03.9 - HYPOTHYROIDISM, UNSPECIFIED Status: Chronic Current Visit: Yes (5) Overactive bladder SNOMED Code(s): 618458682 Code(s): N32.81 - OVERACTIVE BLADDER Status: Chronic Current Visit: Yes (6) History of pulmonary embolus (PE) SNOMED Code(s): 287515154 Code(s): Z86.711 - PERSONAL HISTORY OF PULMONARY EMBOLISM Status: Chronic Current Visit: Yes (7) Chronic pain syndrome SNOMED Code(s): 783671645 Code(s): G89.4 - CHRONIC PAIN SYNDROME Status: Chronic Current Visit: Yes (8) Depression SNOMED Code(s): 98667886 Code(s): F32.9 - MAJOR DEPRESSIVE DISORDER, SINGLE EPISODE, UNSPECIFIED Status: Chronic Current Visit: Yes (9) COPD (chronic obstructive pulmonary disease) SNOMED Code(s): 83835761 Code(s): J44.9 - CHRONIC OBSTRUCTIVE PULMONARY DISEASE, UNSPECIFIED Status: Chronic Current Visit: Yes Qualifiers: COPD type: unspecified COPD Qualified Code(s): J44.9 - Chronic obstructive pulmonary disease, unspecified - Problem List Review Problem List Initiated/Reviewed/Updated: Yes - My Orders Last 24 Hours: My Active Orders 09/07/20 09:00 Aspirin [Halfprin] 81 mg PO DAILY Cholecalciferol (Vitamin D3) [Vitamin D3] 10 mcg PO DAILY Multivitamins [Tab-A-Norm] 1 tab PO DAILY Patient's Own Medication [Ptom] 1 each PO DAILY dexAMETHasone 6 mg PO DAILY 09/07/20 10:33 bisacodyL [Dulcolax] 10 mg RECTAL DAILY PRN polyethylene glycoL 3350 [MiraLAX] 17 gm PO DAILY PRN 09/07/20 14:08 Insurance Specialist Discontinue [Cardiac Monitoring Discontinue] [RC] Click to Edit 09/07/20 14:30 Azithromycin [Zithromax] 500 mg PO Q24H 09/07/20 15:00 Remdesivir 100 mg Sodium Chloride 0.9% [Normal Saline] 100 ml IV Q24H 09/07/20 21:00 atorvaSTATin [Lipitor] 40 mg PO BEDTIME 09/08/20 08:38 Aloe Vera/Sodium Chloride [[place] Saline Nasal Gel] See Dose Instructions FREDA ASDIRECTED PRN Ketorolac [Toradol] 30 mg IVPUSH ONETIME ONE 09/08/20 09:00 Loratadine [Claritin] 10 mg PO DAILY 09/09/20 05:11 CBC WITH AUTO DIFF [HEME] AM COMPREHENSIVE METABOLIC PN,CMP [CHEM] AM MAGNESIUM [CHEM] AM 09/10/20 05:11 CBC WITH AUTO DIFF [HEME] AM COMPREHENSIVE METABOLIC PN,CMP [CHEM] AM MAGNESIUM [CHEM] AM 09/11/20 05:11 CBC WITH AUTO DIFF [HEME] AM COMPREHENSIVE METABOLIC PN,CMP [CHEM] AM MAGNESIUM [CHEM] AM - Plan Plan:: This 60-year-old female admitted with acute on chronic hypoxic respiratory failure, COVID-19, viral pneumonia 1. Acute on chronic hypoxic respiratory failure/COVID-19/viral pneumonia -Feeling somewhat better today. Continue to wean oxygen as needed -Continue to keep oxygen sats greater than 88% due to COPD. Currently needing 2 L wean as possible -Dexamethasone 6 mg p.o. daily x10 days or discharge whichever comes sooner -Remdesivir 100 mg IV daily x4 days -I-S and Acapella -DuoNebs as needed -We did discuss proning as much as possible though this may be limited to to her chronic pain. She reports she will attempt -Monitor LFTs during remdesivir therapy -Lovenox 40 mg daily subcut -Azithromycin 500 mg p.o. daily -Tessalon Perles as needed cough -Will add AYR nasal gel to help with nasal dryness. -Loratadine for congestion 2. COPD -Continue Symbicort and Spiriva per home dosing. -DuoNebs as needed -Continue to monitor may need to go home on oxygen. 3. Hypothyroidism -Continue levothyroxine 4. Daily alcohol use -CIWA assessment every 4 hours -Ativan protocol per CIWA scores. -Thiamine and folic acid daily 5. Chronic pain syndrome/chronic back pain -Decrease gabapentin to once daily as patient reports she gets more sleepy with taking it twice a day. Though it is ordered for twice a day she only takes it in the evening. VTE prophylaxis: Lovenox GI prophylaxis: Protonix CODE STATUS: DNR/DNI as expressed explicitly by patient during my exam. Dispo: 2 to 3 days pending improvement.
[2020-09-08] MEDS: Multivitamin Tab PO SCH (09:28)
[2020-09-08] MEDS: Aspirin 81 MG Tab.EC PO SCH (09:28)
[2020-09-08] MEDS: Cholecalciferol (Vitamin D3) 10 MCG Tab PO SCH (09:28)
[2020-09-08] MEDS: Dexamethasone 4 MG Tab PO SCH (09:29)
[2020-09-08] MEDS: Loratadine 10 MG Tab PO SCH (09:30)
[2020-09-08] MEDS: Fluticasone Propionate Nasal Spray 16 GM Bottle NASBOTH SCH ×2 (09:32→20:26)
[2020-09-08] MEDS: MIRABEGRON 50 MG PO SCH (09:33)
[2020-09-08] MEDS: Polyethylene Glycol 3350 Powder 17 GM Packet PO PRN (09:34)
[2020-09-08] MEDS: Gabapentin 300 MG Cap PO SCH ×2 (09:53→20:26)
[2020-09-08] MEDS: Gabapentin 100 MG Cap PO SCH ×2 (09:53→20:27)
[2020-09-08] MEDS: Celecoxib 100 MG Cap PO SCH ×2 (09:53→20:27)
[2020-09-08] MEDS ORDERED: Bisacodyl 5 MG Tab PO ONE (10:34)
[2020-09-08] MEDS: Azithromycin 250 MG Tab PO SCH (14:40)
[2020-09-08] MEDS: Enoxaparin 40 MG/0.4 ML Syringe SUBCUT SCH (14:40)
[2020-09-08] MEDS: REMDESIVIR 100 MG in Sodium Chloride 0.9% 100 ML IV SCH (14:42)
[2020-09-08] MEDS: Thiamine 100 MG Tab PO SCH (20:27)
[2020-09-08] MEDS: atorvaSTATin 40 MG Tab PO SCH (20:27)
[2020-09-08] MEDS: Folic Acid 1 MG Tab PO SCH (20:27)
[2020-09-08] MEDS: Montelukast 10 MG Tab PO SCH (20:27)
[2020-09-09] MEDS: BUDESONIDE INH SCH ×2 (06:17→21:02)
[2020-09-09] MEDS: FORMOTEROL INH SCH ×2 (06:17→21:02)
[2020-09-09] MEDS: Albuterol/Ipratropium 3.0-0.5 MG/3 ML Neb Soln NEB SCH ×3 (06:19→18:18)
[2020-09-09] MEDS: Tiotropium Inhaler 18 MCG Inhalation Powder Cap Kit of 5 INH SCH (06:20)
[2020-09-09 06:27] LABS: BLOOD UREA NITROGEN,BUN 17 mg/dL (7.0-18.0); CARBON DIOXIDE,CO2 26.4 mmol/L (21.0-32.0); CHLORIDE,CL 106 mmol/L (98-107); GLUCOSE RANDOM 92 mg/dL (74-106); POTASSIUM,K 3.9 mmol/L (3.5-5.1); SODIUM,NA 142 mmol/L (136-145)
[2020-09-09] MEDS: Pantoprazole 40 MG Tab.CR PO SCH (06:31)
[2020-09-09] MEDS: Levothyroxine 100 MCG Tab PO SCH (06:31)
[2020-09-09] MEDS: Gabapentin 300 MG Cap PO SCH ×2 (09:02→20:59)
[2020-09-09] MEDS: Gabapentin 100 MG Cap PO SCH ×2 (09:02→20:59)
[2020-09-09] MEDS: Cholecalciferol (Vitamin D3) 10 MCG Tab PO SCH (09:03)
[2020-09-09] MEDS: Aspirin 81 MG Tab.EC PO SCH (09:03)
[2020-09-09] MEDS: Celecoxib 100 MG Cap PO SCH ×2 (09:03→20:58)
[2020-09-09] MEDS: Loratadine 10 MG Tab PO SCH (09:04)
[2020-09-09] MEDS: Multivitamin Tab PO SCH (09:04)
[2020-09-09] MEDS: MIRABEGRON 50 MG PO SCH (09:05)
[2020-09-09] MEDS: Dexamethasone 4 MG Tab PO SCH (09:05)
[2020-09-09] MEDS: Fluticasone Propionate Nasal Spray 16 GM Bottle NASBOTH SCH ×2 (09:06→20:57)
--- NOTE | 2020-09-09 09:24 | PCM.PN ---
- General Info Date of Service: 09/09/20 Admission Dx/Problem (Free Text): Admission Diagnosis/Problem Admission Diagnosis/Problem Hypoxia Subjective Update: Reports she is feeling better today headache is still there but much improved from yesterday. Reports shortness of breath slightly improved and she is currently on room air. She does feel continued dyspnea on exertion but this has improved. Denies any cough. No other concerns. We did discuss quarantining timeframe for hospitalized patients with Covid. She verbalized understanding of 20 days since states she became sick. Functional Status: Reports: Pain Controlled, Tolerating Diet, Ambulating, Urinating - Review of Systems General: Reports: Fatigue HEENT: Reports: Headaches (Much improved), Sinus Congestion Pulmonary: Reports: Shortness of Breath, Wheezing. Denies: Cough, Sputum Cardiovascular: Reports: Dyspnea on Exertion. Denies: Chest Pain Gastrointestinal: Reports: No Symptoms. Denies: Abdominal Pain, Nausea, Vomiting Genitourinary: Reports: No Symptoms. Denies: Dysuria, Frequency, Burning Musculoskeletal: Reports: No Symptoms Skin: Reports: No Symptoms Neurological: Reports: Headache Psychiatric: Reports: No Symptoms - Patient Data Vitals - Most Recent: Last Vital Signs Temp 97.3 F 09/09/20 09:00 Pulse 76 09/09/20 09:00 Resp 16 09/09/20 09:00 BP 111/66 09/09/20 09:00 Pulse Ox 90 L 09/09/20 09:00 Weight - Most Recent: 76.385 kg I&O - Last 24 Hours: Intake & Output 09/08/20 09/09/20 09/09/20 22:59 06:59 14:59 Intake Total 560 380 Output Total 1200 400 Balance -640 -20 Lab Results Last 24 Hours: Laboratory Results - last 24 hr 09/09/20 09/09/20 Range/Units 05:37 05:37 WBC 5.62 (4.0-11.0) K/uL RBC 3.74 L (4.30-5.90) M/uL Hgb 11.4 L (12.0-16.0) g/dL Hct 35.2 L (36.0-46.0) % MCV 94.1 (80.0-98.0) fL MCH 30.5 (27.0-32.0) pg MCHC 32.4 (31.0-37.0) g/dL RDW Std Deviation 48.4 (28.0-62.0) fl RDW Coeff of Glo 14 (11.0-15.0) % Plt Count 294 (150-400) K/uL MPV 10.10 (7.40-12.00) fL Neut % (Auto) 63.5 (48.0-80.0) % Lymph % (Auto) 25.8 (16.0-40.0) % Caroline % (Auto) 10.3 (0.0-15.0) % Eos % (Auto) 0.0 (0.0-7.0) % Baso % (Auto) 0.4 (0.0-1.5) % Neut # (Auto) 3.6 (1.4-5.7) K/uL Lymph # (Auto) 1.5 (0.6-2.4) K/uL Caroline # (Auto) 0.6 (0.0-0.8) K/uL Eos # (Auto) 0.0 (0.0-0.7) K/uL Baso # (Auto) 0.0 (0.0-0.1) K/uL Nucleated RBC % 0.0 /100WBC Nucleated RBCs # 0 K/uL Sodium 142 (136-145) mmol/L Potassium 3.9 (3.5-5.1) mmol/L Chloride 106 (98-107) mmol/L Carbon Dioxide 26.4 (21.0-32.0) mmol/L BUN 17 (7.0-18.0) mg/dL Creatinine 0.8 (0.6-1.0) mg/dL Est Cr Clr Drug Dosing 64.58 mL/min Estimated GFR (MDRD) > 60.0 ml/min Glucose 92 (74-106) mg/dL Calcium 8.2 L (8.5-10.1) mg/dL Magnesium 2.2 (1.8-2.4) mg/dL Total Bilirubin 0.2 (0.2-1.0) mg/dL AST 17 (15-37) IU/L ALT 26 (14-63) IU/L Alkaline Phosphatase 49 (46-116) U/L Total Protein 6.0 L (6.4-8.2) g/dL Albumin 2.3 L (3.4-5.0) g/dL Globulin 3.7 (2.6-4.0) g/dL Albumin/Globulin Ratio 0.6 L (0.9-1.6) Med Orders - Current: Current Medications Acetaminophen (Tylenol) 650 mg PO Q4H PRN PRN Reason: Pain (Mild 1-3)/fever Last Admin: 09/08/20 06:49 Dose: 650 mg Documented by: Albuterol/Ipratropium (Duoneb 3.0-0.5 Mg/3 Ml) 3 ml NEB Q6HRRT [facility] Last Admin: 09/09/20 06:19 Dose: 3 ml Documented by: Aspirin (Halfprin) 81 mg PO DAILY [facility] Last Admin: 09/09/20 09:03 Dose: 81 mg Documented by: Atorvastatin Calcium (Lipitor) 40 mg PO BEDTIME [facility] Last Admin: 09/08/20 20:27 Dose: 40 mg Documented by: Azithromycin (Zithromax) 500 mg PO Q24H [facility] Last Admin: 09/08/20 14:40 Dose: 500 mg Documented by: Baclofen (Lioresal) 10 mg PO TID PRN PRN Reason: Pain Bisacodyl (Dulcolax) 10 mg RECTAL DAILY PRN PRN Reason: Constipation Budesonide/Formoterol Fumarate (Symbicort 160-4.5 Mcg) 0 gm INH BIDRT [facility] Last Admin: 09/09/20 06:17 Dose: 2 inhalation Documented by: Celecoxib (Celebrex) 100 mg PO BID [facility] Last Admin: 09/09/20 09:03 Dose: 100 mg Documented by: Cholecalciferol (Vitamin D3) 10 mcg PO DAILY [facility] Last Admin: 09/09/20 09:03 Dose: 10 mcg Documented by: Dexamethasone (Dexamethasone) 6 mg PO DAILY [facility] Last Admin: 09/09/20 09:05 Dose: 6 mg Documented by: Enoxaparin Sodium (Lovenox) 40 mg SUBCUT Q24H [facility] Last Admin: 09/08/20 14:40 Dose: 40 mg Documented by: Fluticasone Propionate (Flonase) 0 gm NASBOTH BID [facility] Last Admin: 09/09/20 09:06 Dose: 2 spray Documented by: Folic Acid (Folic Acid) 1 mg PO BEDTIME [facility] Last Admin: 09/08/20 20:27 Dose: 1 mg Documented by: Gabapentin (Neurontin) 300 mg PO BID [facility] Last Admin: 09/09/20 09:02 Dose: 300 mg Documented by: Gabapentin (Neurontin) 100 mg PO BID [facility] Last Admin: 09/09/20 09:02 Dose: 100 mg Documented by: Remdesivir 100 mg/ Sodium (Chloride) 100 mls @ 100 mls/hr IV Q24H [facility] Stop: 09/10/20 15:59 Last Admin: 09/08/20 14:42 Dose: 100 mls/hr Documented by: Levothyroxine Sodium (Synthroid) 100 mcg PO ACBRK [facility] Last Admin: 09/09/20 06:31 Dose: 100 mcg Documented by: Loratadine (Claritin) 10 mg PO DAILY [facility] Last Admin: 09/09/20 09:04 Dose: 10 mg Documented by: Lorazepam (Ativan) 0 mg IVPUSH Q4H PRN; Protocol PRN Reason: CIWAA Montelukast Sodium (Singulair) 10 mg PO BEDTIME [facility] Last Admin: 09/08/20 20:27 Dose: 10 mg Documented by: Multivitamins/Minerals/Vitamin C (Tab-A-Norm) 1 tab PO DAILY [facility] Last Admin: 09/09/20 09:04 Dose: 1 tab Documented by: Ondansetron HCl (Zofran) 4 mg IVPUSH Q4H PRN PRN Reason: Nausea Pantoprazole Sodium (Protonix) 40 mg PO ACBREAKFAST [facility] Last Admin: 09/09/20 06:31 Dose: 40 mg Documented by: Mirabegron 50 Mg 1 each PO DAILY [facility] Last Admin: 09/09/20 09:05 Dose: 1 each Documented by: Polyethylene Glycol (Miralax) 17 gm PO DAILY PRN PRN Reason: Constipation Last Admin: 09/08/20 09:34 Dose: 17 gm Documented by: Sodium Chloride (Saline Flush) 2.5 ml FLUSH ASDIRECTED PRN PRN Reason: Keep Vein Open Sodium Chloride ([place] Saline Nasal Gel) 0 gm FREDA ASDIRECTED PRN PRN Reason: dry nose Last Admin: 09/08/20 14:38 Dose: 1 applic Documented by: Thiamine HCl (Vitamin B-1) 100 mg PO BEDTIME [facility] Last Admin: 09/08/20 20:27 Dose: 100 mg Documented by: Tiotropium [place] (Spiriva Handihaler) 18 mcg INH DAILYRT [facility] Last Admin: 09/09/20 06:20 Dose: 1 cap Documented by: Tramadol HCl (Ultram) 50 mg PO Q24H PRN PRN Reason: Pain Discontinued Medications Albuterol/Ipratropium (Duoneb 3.0-0.5 Mg/3 Ml) 3 ml NEB Q4HRRT [facility] Last Admin: 09/08/20 10:45 Dose: Not Given Documented by: Bisacodyl (Dulcolax) 10 mg PO ONETIME ONE Stop: 09/08/20 10:35 Last Admin: 09/08/20 11:25 Dose: 10 mg Documented by: Fluticasone Propionate (Flonase) 0 gm NASBOTH DAILY [facility] Last Admin: 09/06/20 16:13 Dose: 2 inhalation Documented by: Azithromycin 500 mg/ Sodium (Chloride) 250 mls @ 250 mls/hr IV ONETIME [facility] Stop: 09/06/20 16:00 Last Admin: 09/06/20 13:56 Dose: 250 mls/hr Documented by: Remdesivir 200 mg/ Sodium (Chloride) 250 mls @ 250 mls/hr IV ONETIME ONE Stop: 09/06/20 15:59 Last Admin: 09/06/20 16:20 Dose: 250 mls/hr Documented by: Iopamidol (Isovue Multipack-370 (76%)) 80 ml IVPUSH ONETIME STA Stop: 09/06/20 12:51 Last Admin: 09/06/20 12:55 Dose: 80 ml Documented by: Ketorolac Tromethamine (Toradol) 30 mg IVPUSH ONETIME ONE Stop: 09/06/20 11:09 Last Admin: 09/06/20 11:14 Dose: 30 mg Documented by: Ketorolac Tromethamine (Toradol) 30 mg IVPUSH ONETIME ONE Stop: 09/08/20 08:39 Last Admin: 09/08/20 09:31 Dose: 30 mg Documented by: Methylprednisolone Sodium Succinate (Solu-Medrol) 125 mg IVPUSH ONETIME ONE Stop: 09/06/20 10:47 Last Admin: 09/06/20 11:14 Dose: 125 mg Documented by: Budesonide/Formoterol 160-4.5 Mcg/Puff 6 Gm Inhaler 2 each INH BIDRT [facility] Sodium Chloride (Saline Flush) 10 ml FLUSH ASDIRECTED PRN PRN Reason: Keep Vein Open Last Admin: 09/06/20 11:14 Dose: 10 ml Documented by: Sodium Chloride (Saline Flush) 2.5 ml FLUSH ASDIRECTED PRN PRN Reason: Keep Vein Open Last Admin: 09/06/20 11:15 Dose: 2.5 ml Documented by: - Exam General: Alert, Oriented, Cooperative, No Acute Distress Neck: Supple Lungs: Normal Respiratory Effort (While at rest in bed), Decreased Breath Sounds, Wheezing Cardiovascular: Regular Rate, Regular Rhythm GI/Abdominal Exam: Normal Bowel Sounds, Soft, Non-Tender, Other (Constipation) Extremities: Normal Inspection, Normal Range of Motion, Non-Tender, No Pedal Edema Neurological: No New Focal Deficit Psy/Mental Status: Alert, Normal Affect, Normal Mood Sepsis Event Note - Evaluation Sepsis Screening Result: No Definite Risk - Focused Exam Vital Signs: Vital Signs Temp Pulse Resp BP Pulse Ox 09/09/20 09:00 97.3 F 76 16 111/66 90 L 09/09/20 04:28 97.7 F 68 18 119/60 89 L 09/09/20 00:00 96.9 F 86 18 146/75 H 89 L - Problem List & Annotations (1) Acute and chronic respiratory failure with hypoxia SNOMED Code(s): 79555863, 991508176 Code(s): J96.21 - ACUTE AND CHRONIC RESPIRATORY FAILURE WITH HYPOXIA Status: Acute Current Visit: Yes (2) COVID-19 virus infection SNOMED Code(s): 338856295 Code(s): U07.1 - COVID-19 Status: Acute Current Visit: Yes (3) HLD (hyperlipidemia) SNOMED Code(s): 69695883 Code(s): E78.5 - HYPERLIPIDEMIA, UNSPECIFIED Status: Chronic Current Visit: Yes (4) Hypothyroidism SNOMED Code(s): 53510675 Code(s): E03.9 - HYPOTHYROIDISM, UNSPECIFIED Status: Chronic Current Visit: Yes (5) Overactive bladder SNOMED Code(s): 768031020 Code(s): N32.81 - OVERACTIVE BLADDER Status: Chronic Current Visit: Yes (6) History of pulmonary embolus (PE) SNOMED Code(s): 262363792 Code(s): Z86.711 - PERSONAL HISTORY OF PULMONARY EMBOLISM Status: Chronic Current Visit: Yes (7) Chronic pain syndrome SNOMED Code(s): 295866078 Code(s): G89.4 - CHRONIC PAIN SYNDROME Status: Chronic Current Visit: Yes (8) Depression SNOMED Code(s): 85729444 Code(s): F32.9 - MAJOR DEPRESSIVE DISORDER, SINGLE EPISODE, UNSPECIFIED Status: Chronic Current Visit: Yes (9) COPD (chronic obstructive pulmonary disease) SNOMED Code(s): 24862350 Code(s): J44.9 - CHRONIC OBSTRUCTIVE PULMONARY DISEASE, UNSPECIFIED Status: Chronic Current Visit: Yes Qualifiers: COPD type: unspecified COPD Qualified Code(s): J44.9 - Chronic obstructive pulmonary disease, unspecified - Problem List Review Problem List Initiated/Reviewed/Updated: Yes - My Orders Last 24 Hours: My Active Orders 09/08/20 08:38 Aloe Vera/Sodium Chloride [[place] Saline Nasal Gel] See Dose Instructions FREDA ASDIRECTED PRN 09/08/20 09:00 Loratadine [Claritin] 10 mg PO DAILY 09/08/20 12:00 Albuterol/Ipratropium [DuoNeb 3.0-0.5 MG/3 ML] 3 ml NEB Q6HRRT 09/10/20 05:11 CBC WITH AUTO DIFF [HEME] AM COMPREHENSIVE METABOLIC PN,CMP [CHEM] AM MAGNESIUM [CHEM] AM 09/11/20 05:11 CBC WITH AUTO DIFF [HEME] AM COMPREHENSIVE METABOLIC PN,CMP [CHEM] AM MAGNESIUM [CHEM] AM - Plan Plan:: This 60-year-old female admitted with acute on chronic hypoxic respiratory failure, COVID-19, viral pneumonia 1. Acute on chronic hypoxic respiratory failure/COVID-19/viral pneumonia -Continues to feel improved steadily and every day. -Continue to keep oxygen sats greater than 88% due to COPD. Currently on room air at rest. Will check sats for oxygen testing. -Dexamethasone 6 mg p.o. daily x10 days or discharge whichever comes sooner -Remdesivir 100 mg IV daily x4 days, day 3 of 4 today -I-S and Acapella -DuoNebs as needed -We did discuss proning as much as possible though this may be limited to to her chronic pain. She reports she will attempt -Monitor LFTs during remdesivir therapy -Lovenox 40 mg daily subcut -Azithromycin 500 mg p.o. daily -Tessalon Perles as needed cough - AYR nasal gel to help with nasal dryness. -Loratadine for congestion 2. COPD -Continue Symbicort and Spiriva per home dosing. -DuoNebs as needed -Continue to monitor may need to go home on oxygen. 3. Hypothyroidism -Continue levothyroxine 4. Daily alcohol use -CIWA assessment every 4 hours -Ativan protocol per CIWA scores. -Thiamine and folic acid daily 5. Chronic pain syndrome/chronic back pain -Gabapentin daily VTE prophylaxis: Lovenox GI prophylaxis: Protonix CODE STATUS: DNR/DNI as expressed explicitly by patient during my exam. Dispo: 2 to 3 days pending improvement.
[2020-09-09] MEDS: Magnesium Oxide 400 MG Tab PO SCH (11:29)
[2020-09-09] MEDS: Azithromycin 250 MG Tab PO SCH (15:00)
[2020-09-09] MEDS: REMDESIVIR 100 MG in Sodium Chloride 0.9% 100 ML IV SCH (15:02)
[2020-09-09] MEDS: Enoxaparin 40 MG/0.4 ML Syringe SUBCUT SCH (15:02)
[2020-09-09] MEDS: atorvaSTATin 40 MG Tab PO SCH (20:58)
[2020-09-09] MEDS: Folic Acid 1 MG Tab PO SCH (20:58)
[2020-09-09] MEDS: Montelukast 10 MG Tab PO SCH (20:59)
[2020-09-09] MEDS: Thiamine 100 MG Tab PO SCH (21:00)
[2020-09-10] MEDS: Albuterol/Ipratropium 3.0-0.5 MG/3 ML Neb Soln NEB SCH ×3 (00:04→12:28)
[2020-09-10 06:13] LABS: BLOOD UREA NITROGEN,BUN 17 mg/dL (7.0-18.0); CARBON DIOXIDE,CO2 27.5 mmol/L (21.0-32.0); CHLORIDE,CL 105 mmol/L (98-107); GLUCOSE RANDOM 97 mg/dL (74-106); POTASSIUM,K 4.5 mmol/L (3.5-5.1); SODIUM,NA 140 mmol/L (136-145)
[2020-09-10] MEDS: FORMOTEROL INH SCH (06:17)
[2020-09-10] MEDS: BUDESONIDE INH SCH (06:17)
[2020-09-10] MEDS: Tiotropium Inhaler 18 MCG Inhalation Powder Cap Kit of 5 INH SCH (06:18)
[2020-09-10] MEDS: Levothyroxine 100 MCG Tab PO SCH (06:47)
[2020-09-10] MEDS: Pantoprazole 40 MG Tab.CR PO SCH (06:47)
[2020-09-10] MEDS: Cholecalciferol (Vitamin D3) 10 MCG Tab PO SCH (08:31)
[2020-09-10] MEDS: Multivitamin Tab PO SCH (08:31)
[2020-09-10] MEDS: Loratadine 10 MG Tab PO SCH (08:31)
[2020-09-10] MEDS: Fluticasone Propionate Nasal Spray 16 GM Bottle NASBOTH SCH (08:31)
[2020-09-10] MEDS: Gabapentin 300 MG Cap PO SCH (08:31)
[2020-09-10] MEDS: Celecoxib 100 MG Cap PO SCH (08:31)
[2020-09-10] MEDS: Gabapentin 100 MG Cap PO SCH (08:31)
[2020-09-10] MEDS: Dexamethasone 4 MG Tab PO SCH (08:31)
[2020-09-10] MEDS: Aspirin 81 MG Tab.EC PO SCH (08:31)
[2020-09-10] MEDS: MIRABEGRON 50 MG PO SCH (08:32)
[2020-09-10] MEDS: Magnesium Oxide 400 MG Tab PO SCH (08:33)
--- NOTE | 2020-09-10 11:01 | PCM.DCSUM1 ---
Discharge Summary - Hospital Course Brief History: This 60-year-old female with past medical history of COPD, chronic low back pain, hypothyroidism, overactive bladder, chronic pain, HLD, depression and history of PE presented to the ER today with complaints of not feeling well for over 1 week. She reports last week she started feeling headache body aches fevers and chills and her taste was off. She reports that over the last few days shortness of breath has worsened significantly and she has noted her saturations at home were 60s on room air. She reports they did come up slightly to 70s and then mid 80s she did borrow her sister's oxygen tank to help with this. She denies any chest pain but does report some burning with coughing along with shortness of breath. She denies any palpitations. No neck pain. Reports allover headache denies blurred vision or double vision. Denies any neck pain or nuchal rigidity. She does report significant sinus congestion mainly in the maxillary sinuses. Denies any sore throat. She reports mild abdominal discomfort no nausea or vomiting and again poor appetite. Denies any diarrhea black or bloody bowel movements. She reports she has been more constipated which is normal for her. She denies any tobacco use currently. She quit approximately 3 years ago. Reports she does drink 3-4 alcoholic beverages daily. No recreational drug use. She reports she has no known contact for Covid infection. She does report she got the influenza vaccine this year. But has not yet gotten code vaccination. In the ER no leukocytosis noted. Platelets 204,000. D-dimer elevated at 0.83. BMP and LFTs within normal limits. Troponin negative. EKG normal sinus rhythm with no ST depression or elevation. Chest x-ray revealed mild bibasilar opacities with small left pleural effusion. CTA of the chest was obtained secondary to elevated D-dimer. This revealed no PE but did show continued bibasilar opacities left slightly greater than right indicative of COVID-19. She did have cepheid swab which was negative for influenza a and B but positive for Covid. On arrival to the ER she was noted to be hypoxic with sats 85% on room air. She was placed on 2 L and sats improved to 95%. She was also given a azithromycin as well as Solu-Medrol and duo nebs in the ER. Diagnosis: Stroke: No - Discharge Data Discharge Date: 09/10/20 Discharge Disposition: Home, Self-Care 01 Condition: Good - Referral to Home Health Primary Care Physician: Horace Reeves MD - Discharge Diagnosis/Problem(s) (1) Acute and chronic respiratory failure with hypoxia SNOMED Code(s): 29453950, 922204506 ICD Code: J96.21 - ACUTE AND CHRONIC RESPIRATORY FAILURE WITH HYPOXIA Status: Acute Current Visit: Yes (2) COVID-19 virus infection SNOMED Code(s): 866877831 ICD Code: U07.1 - COVID-19 Status: Acute Current Visit: Yes (3) HLD (hyperlipidemia) SNOMED Code(s): 36517205 ICD Code: E78.5 - HYPERLIPIDEMIA, UNSPECIFIED Status: Chronic Current Visit: Yes (4) Hypothyroidism SNOMED Code(s): 07114826 ICD Code: E03.9 - HYPOTHYROIDISM, UNSPECIFIED Status: Chronic Current Visit: Yes (5) Overactive bladder SNOMED Code(s): 915175750 ICD Code: N32.81 - OVERACTIVE BLADDER Status: Chronic Current Visit: Yes (6) History of pulmonary embolus (PE) SNOMED Code(s): 132568005 ICD Code: Z86.711 - PERSONAL HISTORY OF PULMONARY EMBOLISM Status: Chronic Current Visit: Yes (7) Chronic pain syndrome SNOMED Code(s): 770930612 ICD Code: G89.4 - CHRONIC PAIN SYNDROME Status: Chronic Current Visit: Yes (8) Depression SNOMED Code(s): 21456008 ICD Code: F32.9 - MAJOR DEPRESSIVE DISORDER, SINGLE EPISODE, UNSPECIFIED Status: Chronic Current Visit: Yes (9) COPD (chronic obstructive pulmonary disease) SNOMED Code(s): 64512267 ICD Code: J44.9 - CHRONIC OBSTRUCTIVE PULMONARY DISEASE, UNSPECIFIED Status: Chronic Current Visit: Yes Qualifiers: COPD type: unspecified COPD Qualified Code(s): J44.9 - Chronic obstructive pulmonary disease, unspecified - Patient Summary/Data Hospital Course: Admission diagnoses Acute on chronic respiratory failure with hypoxia COVID-19 Viral pneumonia Discharge diagnoses Acute on chronic respiratory failure with hypoxia COVID-19 Viral pneumonia Other PMH COPD -Was admitted secondary to COVID-19 resulting in acute on chronic hypoxic respiratory failure. She was noted to be needing 2 L of oxygen due to increased shortness of breath and viral pneumonia. CTA was obtained which did not show any PE but did show viral bilateral pneumonia. She was started on COVID-19 treatment regimen which includes remdesivir, dexamethasone and DuoNeb's. She was counseled heavily on pulmonary toileting with I-S and Acapella. Because she does have a history of COPD we opted to treat with azithromycin 500 mg p.o. daily, which she has also completed 5 days of this. She has continued to slowly and steadily improve over the last 5 days. She will finish remdesivir treatment today. Her breathing is significantly improved but does have some dyspnea on exertion. She is also noted to continue to need oxygen on exertion. At rest she is satting 90% on room air on activity O2 saturation dropped to 86%. On ambulation she was placed on 1 L oxygen per nasal cannula and saturations increased to 88%. On 2 L she was up to 90%. I will send her home with oxygen 2 L with activity. She is to monitor her oxygen saturations closely. She is to limit activity as well as quarantine for the next 2 weeks the last day of her quarantine would be 09/20/2020. She verbalized understanding of this. She was also counseled on masking and social distancing. Today she is ready for discharge after last remdesivir dose. I will discharge her home with renee santiago every 6 hours, Get Mckenzie as needed cough and prednisone 10-day taper. She is to follow-up with PCP in 1 to 2 weeks. She is to return to the ER or clinic if concerns should arise sooner. - Patient Instructions Diet: Regular Diet as Tolerated Activity: No Strenuous Activities Driving: Do Not Drive Showering/Bathing: May Shower Notify Provider of: Fever, Increased Pain, Swelling and Redness, Drainage, Nausea and/or Vomiting Other/Special Instructions: Following [facility] beatrice for hospitalist Covid patients you should quarantine for total of 20 days since onset of symptoms. Per report symptoms started 1 week prior to admission into the hospital. This would indicate that last day of quarantine would be 09/20/2020. Continue to social distance and wear a mask when quarantine is over in public. - Discharge Plan *PRESCRIPTION DRUG MONITORING PROGRAM REVIEWED*: Not Applicable *COPY OF PRESCRIPTION DRUG MONITORING REPORT IN PATIENT YO: Not Applicable Prescriptions/Med Rec: Albuterol/Ipratropium [DuoNeb 3.0-0.5 MG/3 ML] 3 ml NEB Q6HRRT PRN 30 Days #1 box PRN Reason: dyspnea/wheezing predniSONE [Prednisone] 10 - 40 mg PO DAILY #30 tablet Benzonatate [Tessalon Perle] 100 mg PO TID PRN #30 capsule PRN Reason: Cough Home Medications: Home Meds Levothyroxine [Synthroid] 100 mcg PO ACBRK 11/15/13 [History] Montelukast [Singulair] 10 mg PO DAILY 11/15/13 [History] Tiotropium [Spiriva HandiHaler] 18 mcg INH DAILY 11/15/13 [History] estradioL [Estradiol] 1 mg PO DAILY 12/01/13 [History] Albuterol [Ventolin HFA] 2 puff INH QID PRN 12/03/13 [History] Aspirin [Halfprin] 81 mg PO DAILY 06/09/19 [History] atorvaSTATin Calcium [Atorvastatin Calcium] 40 mg PO DAILY 06/09/19 [History] Alendronate Sodium 35 mg PO WEEKLY 09/06/20 [History] Ascorbic Acid [Vitamin C] 1 cap PO DAILY 09/06/20 [History] Baclofen 1 tab PO TID PRN 09/06/20 [History] Budesonide/Formoterol Fumarate [Budesonide-Formoterol 160-4.5] 2 inh IH BID 09/06/20 [History] Celecoxib [CeleBREX] 1 cap PO BID 09/06/20 [History] Cholecalciferol (Vitamin D3) [Vitamin D3] 1 tab PO DAILY 09/06/20 [History] Fluticasone Propionate [Flonase] 2 spray NASBOTH BID 09/06/20 [History] Gabapentin [Neurontin] 400 mg PO BID 09/06/20 [History] Mirabegron [Myrbetriq] 50 mg PO DAILY 09/06/20 [History] Multivitamin 1 tab PO DAILY 09/06/20 [History] Mupirocin Oint [Bactroban Oint] 1 applic TOP TID PRN 09/06/20 [History] Vitamin E 1 tab PO DAILY 09/06/20 [History] Zinc 1 tab PO DAILY 09/06/20 [History] cephALEXin [Cephalexin] 1 tab PO DAILY 09/06/20 [History] traMADol [Ultram] 50 mg PO DAILY PRN 09/06/20 [History] Magnesium Oxide [Magnesium] 400 mg PO DAILY 09/08/20 [History] Albuterol/Ipratropium [DuoNeb 3.0-0.5 MG/3 ML] 3 ml NEB Q6HRRT PRN 30 Days #1 box 09/10/20 [Rx] Aloe Vera/Sodium Chloride [[place] Saline Nasal Gel] 1 applic FREDA ASDIRECTED PRN #1 tube 09/10/20 [Rx] Benzonatate [Tessalon Perle] 100 mg PO TID PRN #30 capsule 09/10/20 [Rx] predniSONE [Prednisone] 10 - 40 mg PO DAILY #30 tablet 09/10/20 [Rx] Oxygen Therapy Mode: Nasal Cannula (with activity) Oxygen Flow Rate (L/min): 2 Maintain SpO2% greater than: 88 Patient Handouts: COVID-19 Frequently Asked Questions, COVID-19, Albuterol inhalation aerosol, Prednisolone tablets, Coronavirus Information 10/13/19, Benzonatate capsules Referrals: Horace Reeves MD [Primary Care Provider] - 09/28/20 10:00 am - Discharge Summary/Plan Comment DC Time >30 min.: No - Patient Data Vitals - Most Recent: Last Vital Signs Temp 97.8 F 09/10/20 08:00 Pulse 82 09/10/20 08:00 Resp 18 09/10/20 08:00 BP 104/61 09/10/20 08:00 Pulse Ox 90 L 09/10/20 08:00 Weight - Most Recent: 76.385 kg I&O - Last 24 hours: Intake & Output 09/09/20 09/10/20 09/10/20 22:59 06:59 14:59 Intake Total 660 250 Output Total 600 350 Balance 60 -100 Lab Results - Last 24 hrs: Laboratory Results - last 24 hr 09/10/20 09/10/20 Range/Units 05:25 05:25 WBC 6.76 (4.0-11.0) K/uL RBC 3.88 L (4.30-5.90) M/uL Hgb 11.8 L (12.0-16.0) g/dL Hct 36.6 (36.0-46.0) % MCV 94.3 (80.0-98.0) fL MCH 30.4 (27.0-32.0) pg MCHC 32.2 (31.0-37.0) g/dL RDW Std Deviation 48.7 (28.0-62.0) fl RDW Coeff of Glo 14 (11.0-15.0) % Plt Count 323 (150-400) K/uL MPV 10.20 (7.40-12.00) fL Neut % (Auto) 55.7 (48.0-80.0) % Lymph % (Auto) 33.7 (16.0-40.0) % [place] % (Auto) 10.1 (0.0-15.0) % Eos % (Auto) 0.1 (0.0-7.0) % Baso % (Auto) 0.4 (0.0-1.5) % Neut # (Auto) 3.8 (1.4-5.7) K/uL Lymph # (Auto) 2.3 (0.6-2.4) K/uL [place] # (Auto) 0.7 (0.0-0.8) K/uL Eos # (Auto) 0.0 (0.0-0.7) K/uL Baso # (Auto) 0.0 (0.0-0.1) K/uL Nucleated RBC % 0.6 /100WBC Nucleated RBCs # 0 K/uL Sodium 140 (136-145) mmol/L Potassium 4.5 (3.5-5.1) mmol/L Chloride 105 (98-107) mmol/L Carbon Dioxide 27.5 (21.0-32.0) mmol/L BUN 17 (7.0-18.0) mg/dL Creatinine 0.8 (0.6-1.0) mg/dL Est Cr Clr Drug Dosing 64.58 mL/min Estimated GFR (MDRD) > 60.0 ml/min Glucose 97 (74-106) mg/dL Calcium 8.8 (8.5-10.1) mg/dL Magnesium 1.9 (1.8-2.4) mg/dL Total Bilirubin 0.2 (0.2-1.0) mg/dL AST 19 (15-37) IU/L ALT 25 (14-63) IU/L Alkaline Phosphatase 49 (46-116) U/L Total Protein 6.1 L (6.4-8.2) g/dL Albumin 2.4 L (3.4-5.0) g/dL Globulin 3.7 (2.6-4.0) g/dL Albumin/Globulin Ratio 0.7 L (0.9-1.6) Med Orders - Current: Current Medications Acetaminophen (Tylenol) 650 mg PO Q4H PRN PRN Reason: Pain (Mild 1-3)/fever Last Admin: 09/08/20 06:49 Dose: 650 mg Documented by: Albuterol/Ipratropium (Duoneb 3.0-0.5 Mg/3 Ml) 3 ml NEB Q6HRRT [facility] Last Admin: 09/10/20 06:17 Dose: 3 ml Documented by: Aspirin (Halfprin) 81 mg PO DAILY [facility] Last Admin: 09/10/20 08:31 Dose: 81 mg Documented by: Atorvastatin Calcium (Lipitor) 40 mg PO BEDTIME [facility] Last Admin: 09/09/20 20:58 Dose: 40 mg Documented by: Azithromycin (Zithromax) 500 mg PO Q24H [facility] Baclofen (Lioresal) 10 mg PO TID PRN PRN Reason: Pain Bisacodyl (Dulcolax) 10 mg RECTAL DAILY PRN PRN Reason: Constipation Budesonide/Formoterol Fumarate (Symbicort 160-4.5 Mcg) 0 gm INH BIDRT [facility] Last Admin: 09/10/20 06:17 Dose: 2 inhalation Documented by: Celecoxib (Celebrex) 100 mg PO BID [facility] Last Admin: 09/10/20 08:31 Dose: 100 mg Documented by: Cholecalciferol (Vitamin D3) 10 mcg PO DAILY [facility] Last Admin: 09/10/20 08:31 Dose: 10 mcg Documented by: Dexamethasone (Dexamethasone) 6 mg PO DAILY [facility] Last Admin: 09/10/20 08:31 Dose: 6 mg Documented by: Enoxaparin Sodium (Lovenox) 40 mg SUBCUT Q24H [facility] Last Admin: 09/09/20 15:02 Dose: 40 mg Documented by: Fluticasone Propionate (Flonase) 0 gm NASBOTH BID [facility] Last Admin: 09/10/20 08:31 Dose: 2 spray Documented by: Folic Acid (Folic Acid) 1 mg PO BEDTIME [facility] Last Admin: 09/09/20 20:58 Dose: 1 mg Documented by: Gabapentin (Neurontin) 300 mg PO BID [facility] Last Admin: 09/10/20 08:31 Dose: 300 mg Documented by: Gabapentin (Neurontin) 100 mg PO BID [facility] Last Admin: 09/10/20 08:31 Dose: 100 mg Documented by: Remdesivir 100 mg/ Sodium (Chloride) 100 mls @ 100 mls/hr IV Q24H [facility] Stop: 09/10/20 15:59 Last Admin: 09/09/20 15:02 Dose: 100 mls/hr Documented by: Levothyroxine Sodium (Synthroid) 100 mcg PO ACBRK [facility] Last Admin: 09/10/20 06:47 Dose: 100 mcg Documented by: Loratadine (Claritin) 10 mg PO DAILY [facility] Last Admin: 09/10/20 08:31 Dose: 10 mg Documented by: Lorazepam (Ativan) 0 mg IVPUSH Q4H PRN; Protocol PRN Reason: CIWAA Magnesium Oxide (Magnesium Oxide) 400 mg PO DAILY [facility] Last Admin: 09/10/20 08:33 Dose: Not Given Documented by: Montelukast Sodium (Singulair) 10 mg PO BEDTIME [facility] Last Admin: 09/09/20 20:59 Dose: 10 mg Documented by: Multivitamins/Minerals/Vitamin C (Tab-A-Norm) 1 tab PO DAILY [facility] Last Admin: 09/10/20 08:31 Dose: 1 tab Documented by: Ondansetron HCl (Zofran) 4 mg IVPUSH Q4H PRN PRN Reason: Nausea Pantoprazole Sodium (Protonix) 40 mg PO ACBREAKFAST [facility] Last Admin: 09/10/20 06:47 Dose: 40 mg Documented by: Mirabegron 50 Mg 1 each PO DAILY [facility] Last Admin: 09/10/20 08:32 Dose: 1 each Documented by: Polyethylene Glycol (Miralax) 17 gm PO DAILY PRN PRN Reason: Constipation Last Admin: 09/08/20 09:34 Dose: 17 gm Documented by: Sodium Chloride (Saline Flush) 2.5 ml FLUSH ASDIRECTED PRN PRN Reason: Keep Vein Open Sodium Chloride ([place] Saline Nasal Gel) 0 gm FREDA ASDIRECTED PRN PRN Reason: dry nose Last Admin: 09/08/20 14:38 Dose: 1 applic Documented by: Thiamine HCl (Vitamin B-1) 100 mg PO BEDTIME [facility] Last Admin: 09/09/20 21:00 Dose: 100 mg Documented by: Tiotropium [place] (Spiriva Handihaler) 18 mcg INH DAILYRT [facility] Last Admin: 09/10/20 06:18 Dose: 1 cap Documented by: Tramadol HCl (Ultram) 50 mg PO Q24H PRN PRN Reason: Pain Discontinued Medications Albuterol/Ipratropium (Duoneb 3.0-0.5 Mg/3 Ml) 3 ml NEB Q4HRRT [facility] Last Admin: 09/08/20 10:45 Dose: Not Given Documented by: Azithromycin (Zithromax) 500 mg PO Q24H [facility] Last Admin: 09/09/20 15:00 Dose: 500 mg Documented by: Bisacodyl (Dulcolax) 10 mg PO ONETIME ONE Stop: 09/08/20 10:35 Last Admin: 09/08/20 11:25 Dose: 10 mg Documented by: Fluticasone Propionate (Flonase) 0 gm NASBOTH DAILY [facility] Last Admin: 09/06/20 16:13 Dose: 2 inhalation Documented by: Azithromycin 500 mg/ Sodium (Chloride) 250 mls @ 250 mls/hr IV ONETIME [facility] Stop: 09/06/20 16:00 Last Admin: 09/06/20 13:56 Dose: 250 mls/hr Documented by: Remdesivir 200 mg/ Sodium (Chloride) 250 mls @ 250 mls/hr IV ONETIME ONE Stop: 09/06/20 15:59 Last Admin: 09/06/20 16:20 Dose: 250 mls/hr Documented by: Iopamidol (Isovue Multipack-370 (76%)) 80 ml IVPUSH ONETIME STA Stop: 09/06/20 12:51 Last Admin: 09/06/20 12:55 Dose: 80 ml Documented by: Ketorolac Tromethamine (Toradol) 30 mg IVPUSH ONETIME ONE Stop: 09/06/20 11:09 Last Admin: 09/06/20 11:14 Dose: 30 mg Documented by: Ketorolac Tromethamine (Toradol) 30 mg IVPUSH ONETIME ONE Stop: 09/08/20 08:39 Last Admin: 09/08/20 09:31 Dose: 30 mg Documented by: Methylprednisolone Sodium Succinate (Solu-Medrol) 125 mg IVPUSH ONETIME ONE Stop: 09/06/20 10:47 Last Admin: 09/06/20 11:14 Dose: 125 mg Documented by: Budesonide/Formoterol 160-4.5 Mcg/Puff 6 Gm Inhaler 2 each INH BIDRT JOSETTE Sodium Chloride (Saline Flush) 10 ml FLUSH ASDIRECTED PRN PRN Reason: Keep Vein Open Last Admin: 09/06/20 11:14 Dose: 10 ml Documented by: Sodium Chloride (Saline Flush) 2.5 ml FLUSH ASDIRECTED PRN PRN Reason: Keep Vein Open Last Admin: 09/06/20 11:15 Dose: 2.5 ml Documented by: - Exam Quality Assessment: Reports: Supplemental Oxygen (With activity only) General: Reports: Alert, Oriented, Cooperative, No Acute Distress Lungs: Reports: Decreased Breath Sounds, Wheezing (Intermittent expiratory) Cardiovascular: Reports: Regular Rate, Regular Rhythm GI/Abdominal Exam: Normal Bowel Sounds, Soft, Non-Tender Extremities: Normal Inspection, Normal Range of Motion, Non-Tender Wound/Incisions: Reports: Healing Well Neurological: Reports: No New Focal Deficit Psy/Mental Status: Reports: Alert, Normal Affect, Normal Mood
[2020-09-10] MEDS ORDERED: Azithromycin 250 MG Tab PO SCH (12:00)
[2020-09-10 12:28] VITALS: BP 124/68; PULSE 73
[2020-09-10] MEDS ORDERED: REMDESIVIR 100 MG in Sodium Chloride 0.9% 100 ML IV SCH (13:00)
== END 2020-09-10 14:35 | disposition home or self-care (01) | DRG 177 ==
LOC: MW.ED 10:29 → MW.MS 13:44 → OBSVTOIN 09-09 09:52
PROVIDERS: ADMIT Internal Medicine; ATTEND Internal Medicine
PROC: XW033E5 Introduction of Remdesivir Anti-infective into Peripheral Vein, Percutaneous Approach, New Technology Group 5 (ICD-10-PCS; principal; 2020-09-06)
PROC: XW033F5 Introduction of Other New Technology Therapeutic Substance into Peripheral Vein, Percutaneous Approach, New Technology Group 5 (ICD-10-PCS; 2020-09-06)
DX: U07.1 COVID-19 (principal); J96.21 Acute and chronic respiratory failure with hypoxia; J12.82 Pneumonia due to coronavirus disease 2019; J44.9 Chronic obstructive pulmonary disease, unspecified; J12.9 Viral pneumonia, unspecified; J96.01 Acute respiratory failure with hypoxia; J44.0 Chronic obstructive pulmonary disease with (acute) lower respiratory infection; Z79.82 Long term (current) use of aspirin; Z79.890 Hormone replacement therapy; Z79.01 Long term (current) use of anticoagulants; Z79.899 Other long term (current) drug therapy; Z86.718 Personal history of other venous thrombosis and embolism; Z90.89 Acquired absence of other organs; Z96.641 Presence of right artificial hip joint; Z72.89 Other problems related to lifestyle; Z66 Do not resuscitate; E78.00 Pure hypercholesterolemia, unspecified; E03.9 Hypothyroidism, unspecified; E78.5 Hyperlipidemia, unspecified; N32.81 Overactive bladder; Z86.711 Personal history of pulmonary embolism; G89.4 Chronic pain syndrome; F32.9 Major depressive disorder, single episode, unspecified
CPT/HCPCS: 0240U; 36415; 71046; 71275; 80053; 81001; 83735; 84484; 85025; 85379; 93005; 94640; 94667; 94668; 96365; 96367; 96372; 96375; 96376; 99285; 93010; A9270-GY; G0378; J0456; J1650; J1885; J2930; J7050; J7620-GY; J8540; Q9967

== ENCOUNTER 2022-03-21 08:55 | Emergency (ER) | payer OTHER ==
[2022-03-21] MEDS ORDERED: Ketorolac 30 MG/ML SDV IM ONE (09:09)
[2022-03-21 09:12] VITALS: BP 150/92; PULSE 83
== END 2022-03-21 11:35 | disposition home or self-care (01) ==
LOC: MW.ED 08:55
DX: S82.131A Displaced fracture of medial condyle of right tibia, initial encounter for closed fracture (principal); E78.00 Pure hypercholesterolemia, unspecified; E03.9 Hypothyroidism, unspecified; J44.9 Chronic obstructive pulmonary disease, unspecified; Z79.82 Long term (current) use of aspirin; Z79.899 Other long term (current) drug therapy; W19.XXXA Unspecified fall, initial encounter
CPT/HCPCS: 73502; 73562; 96372; 99283; J1885